=== PATIENT | male | born 1940 | race Caucasian/White ===

== ENCOUNTER 2018-06-26 11:38 | Inpatient (IN) ==
[2018-06-26 12:56] LABS: BASO# 0.08 X1000 (0.0-0.2); BASO% 0.8 % (0.0-0.8); EOS# 0.32 X1000 (0.0-0.7); EOS% 3.1 % (0.0-10.0); HEMATOCRIT 42.6 % (42.0-52.0); HEMOGLOBIN 14.2 g/dL (14.0-18.0); IMM GRAN# 0.02 X1000 (0.0-0.04); IMM GRAN% 0.2 % (0.0-0.5); LYMPH# 1.43 X1000 (1.2-3.4); MCH 27.3 PG (27-31); MCHC 33.3 g/dL (33-37); MCV 81.8 FL (81-99); MONO# 0.73 X1000 (0.11-0.59); MONO% 7.1 % (1.7-9.3); MPV 10.9 FL (7.4-10.4); NEUT# 7.63 X1000 (1.4-6.5); NEUT% 74.8 % (42.2-75.2); PLT 247 X1000 (130-400); RBC 5.21 XMIL (4.7-6.1); RDW 14.4 % (11.5-14.5); WBC 10.21 X1000 (4.8-10.8)
[2018-06-26 13:09] LABS: AGAP 12; BUN 13 mg/dL (8-22); CHLORIDE 104 mmol/L (98-107); COSMO 291; CREATININE 0.8 mg/dL (0.7-1.2); GLUCOSE 178 mg/dL (70-104); SODIUM 144 mmol/L (136-145); TCO2 29 mmol/L (25-35)
[2018-06-26 13:10] LABS: CALCIUM 8.9 mg/dL (8.8-10.2); ESTIMATED GFR > 60
[2018-06-26 13:18] LABS: BILIRUBIN URINE NEGATIVE (NEGATIVE); BLOOD URINE NEGATIVE (NEGATIVE); CLARITY CLEAR (CLEAR); COLOR YELLOW; KETONE URINE NEGATIVE (NEGATIVE); LEUKOCYTES URINE TRACE (NEGATIVE); NITRITE URINE NEGATIVE (NEGATIVE); PROTEIN URINE 2+(100 mg/dL) mg/dL (NEGATIVE); SP GRAVITY URINE 1.015; UROBILINOGEN URINE NORMAL
[2018-06-26 13:25] LABS: URINE EPITHELIAL CELLS <10 /HPF (<10); URINE SOURCE CLEAN CATCH
[2018-06-26] MEDS ORDERED: KLOR-CON PO ONE (14:06)
--- NOTE | 2018-06-26 14:07 | PROVIDER DOCUMENTATION ---
This chart was entered by Tonie Santoro Scribe, acting as scribe for Lee Narayan MD. HPI-Syncope/Dizziness - General Chief Complaint: Weakness Stated Complaint: weakness/fall Time Seen by Provider: 06/26/18 11:54 Source: patient, family () Allergies/Adverse Reactions: Patient Allergies Allergy/AdvReac Type Severity Reaction Status Date / Time No Known Allergies Allergy Verified 06/26/18 12:06 Home Medications: Home Medication List Medication Instructions Recorded Confirmed Last Taken Type Glimepiride 4 mg PO BID 06/10/18 06/26/18 Unknown History Metformin E.r. [Glucophage Xr] 1,000 mg PO BID 06/10/18 06/26/18 Unknown History Potassium Chloride 10 meq PO DAILY 06/10/18 06/26/18 Unknown History Tamsulosin [Flomax] 0.4 mg PO DAILY 06/10/18 06/26/18 Unknown History Losartan/Hydrochlorothiazide 1 ea PO DAILY 06/26/18 06/26/18 Unknown History [Losartan-Hctz 100-25 mg Tab] - History of Present Illness-Syncope/Dizzy Nature of Presenting Problem: 77yom presents to ED by EMS cc near syncope [employer] that was witnessed by his . Pt states he has felt generalized weakness for a few days but worse today and he felt dazed and weak and then just collapsed in his living room. Pt reports he has had left knee surgery and doesn't feel he has fully recovered and he is having back surgery soon. EKG from EMS shows Bigeminy. Pt has hx of DM, HTN and prostate issues. If witnessed syncope, by whom?: Prior Episodes: reports: no prior history Onset/Duration: reports: just prior to arrival Position/Activity at time of episode: reports: standing Symptoms prior to episode: reports: other (felt weak all over and dazed) Context: reports: collapsed. denies: lost consciousness Loss of Consciousness: dazed Recently Seen Here or By Another Healthcare Provider: No Review of Systems - Adult - REVIEW OF SYSTEMS - ADULT Constitutional: reports: see HPItari. denies: chills, fever Eyes: reports: no symptoms reported Ears, Nose, Mouth & Throat: reports: no symptoms reported Cardiovascular: reports: see HPI. denies: chest pain, edema Respiratory: reports: no symptoms reported Gastrointestinal: reports: no symptoms reported Genitourinary: reports: no symptoms reported Musculoskeletal: reports: no symptoms reported Integumentary: reports: no symptoms reported Neurological: reports: see HPI, loss of balance, syncope. denies: seizure Psychiatric: reports: no symptoms reported Endocrine: reports: no symptoms reported Hematologic/Lymphatic: reports: no symptoms reported Allergic/Immunologic: reports: no symptoms reported All Other Systems: Reviewed and Negative Past History - Adult - PAST MEDICAL HISTORY-ADULT Review of Records: reports: Nursing Assessment Review, Medications Reviewed, Social history reviewed & non-contributory. Major Childhood Illnesses: reports: denies history Cardiovascular: reports: HTN Respiratory: reports: denies history Gastrointestinal: reports: denies history Obstetrical/Gynecological: reports: denies history Genitourinary: reports: denies history Musculoskeletal: reports: denies history Neurological: reports: denies history Endocrine/Immune: reports: Diabetes Other Conditions: reports: denies history - PRIOR SURGERIES/PROCEDURES Surgical/Procedure History: reports: joint replacement - IMMUNIZATION STATUS Childhood Immunizations: See Nurse Assessment Flu Vaccine: See Nurse Assessment - FAMILY HISTORY Family History: reviewed, not pertinent - SOCIAL HISTORY Smoking: denies Physical Exam-General - PHYSICAL EXAM-ADULT Initial Vital Signs Reviewed: Yes - CONSTITUTIONAL General Appearance: negative: anxious, combative - EYES Eyes: PERRL/EOMI, pink conjunctivae. negative: photophobia - HEAD, EARS, NOSE, MOUTH & THROAT HENMT: moist mucous membranes, normal ENT inspection. negative: angioedema - NECK Neck: non-tender, full range of motion, supple, normal inspection. negative: Brudzinski's sign, carotid bruit - RESPIRATORY Respiratory: chest non-tender, lungs clear, normal breath sounds, no pleuratic chest pain, no respiratory distress, no accessory muscle use. negative: crackles, rales, rhonchi - CARDIOVASCULAR Cardiovascular: normal peripheral pulses, regular rate, rhythm, no edema, no gallop, no JVD, no murmur. negative: bradycardia, tachycardia - GASTROINTESTINAL (ABDOMEN) Abdominal Exam: normal bowel sounds, non tender, soft, no organomegaly. negative: rigid, rebound, tenderness - LYMPHATIC Lymphatic: no adenopathy. negative: striations - MUSCULOSKELETAL Back Exam: normal inspection. negative: swelling Extremity: normal range of motion, normal inspection. negative: deformity - SKIN Integumentary: warm/dry, abrasion(s) (left elbow and top of right hand). negative: diaphoresis, jaundice Progress - PLAN OF CARE/RESULTS Progress/Plan/Lab Results: Vital Signs - 8 hr 06/26/18 11:55 Temperature 97.5 F L Pulse Rate 75 Respiratory Rate 16 Blood Pressure 157/85 O2 Sat by Pulse Oximetry 99 Laboratory Results - last 24 hr 06/26/18 06/26/18 06/26/18 12:19 12:20 12:20 WBC RBC Hgb Hct MCV MCH MCHC RDW Std Deviation Plt Count MPV Immature Gran % (Auto) Neut % (Auto) Lymph % (Auto) [place] % (Auto) Eos % (Auto) Baso % (Auto) Immature Gran # (Auto) Neut # (Auto) Lymph # (Auto) [place] # (Auto) Eos # (Auto) Baso # (Auto) Sodium Potassium Chloride Carbon Dioxide Anion Gap BUN Creatinine Estimated GFR/1.73 m2 BUN/Creatinine Ratio Glucose POC Glucose 168 H Calculated Osmolality Calcium Magnesium 1.8 Troponin T < 0.010 Free T4 Urine Source Urine Color Urine Clarity Urine pH Ur Specific [place] Urine Protein Urine Ketones Urine Blood Urine Nitrite Urine Bilirubin Urine Urobilinogen Urine Microscopic RBC Urine WBC Ur Epithelial Cells Urine Glucose 06/26/18 06/26/18 06/26/18 12:20 12:20 12:20 WBC 10.21 RBC 5.21 Hgb 14.2 Hct 42.6 MCV 81.8 MCH 27.3 MCHC 33.3 RDW Std Deviation 14.4 Plt Count 247 MPV 10.9 H Immature Gran % (Auto) 0.2 Neut % (Auto) 74.8 Lymph % (Auto) 14.0 L [place] % (Auto) 7.1 Eos % (Auto) 3.1 Baso % (Auto) 0.8 Immature Gran # (Auto) 0.02 Neut # (Auto) 7.63 H Lymph # (Auto) 1.43 [place] # (Auto) 0.73 H Eos # (Auto) 0.32 Baso # (Auto) 0.08 Sodium 144 Potassium 3.0 L Chloride 104 Carbon Dioxide 29 Anion Gap 12 BUN 13 Creatinine 0.8 Estimated GFR/1.73 m2 > 60 BUN/Creatinine Ratio 16 Glucose 178 H POC Glucose Calculated Osmolality 291 Calcium 8.9 Magnesium Troponin T Free T4 1.08 Urine Source Urine Color Urine Clarity Urine pH Ur Specific [place] Urine Protein Urine Ketones Urine Blood Urine Nitrite Urine Bilirubin Urine Urobilinogen Urine Microscopic RBC Urine WBC Ur Epithelial Cells Urine Glucose 06/26/18 12:55 WBC RBC Hgb Hct MCV MCH MCHC RDW Std Deviation Plt Count MPV Immature Gran % (Auto) Neut % (Auto) Lymph % (Auto) [place] % (Auto) Eos % (Auto) Baso % (Auto) Immature Gran # (Auto) Neut # (Auto) Lymph # (Auto) [place] # (Auto) Eos # (Auto) Baso # (Auto) Sodium Potassium Chloride Carbon Dioxide Anion Gap BUN Creatinine Estimated GFR/1.73 m2 BUN/Creatinine Ratio Glucose POC Glucose Calculated Osmolality Calcium Magnesium Troponin T Free T4 Urine Source CLEAN CATCH Urine Color YELLOW Urine Clarity CLEAR Urine pH 6.0 Ur Specific [place] 1.015 Urine Protein 2+(100 mg/dL) A Urine Ketones NEGATIVE Urine Blood NEGATIVE Urine Nitrite NEGATIVE Urine Bilirubin NEGATIVE Urine Urobilinogen NORMAL Urine Microscopic RBC Not Reportable Urine WBC TRACE A Ur Epithelial Cells <10 Urine Glucose 3+(500 mg/dL) A Orders Category Date Time Status Cardiac Monitoring DIRECTED Care 06/26/18 12:01 Active Saline Loc NOW Care 06/26/18 12:01 Active CHEST-PORTABLE [RAD] Stat Exams 06/26/18 13:21 Taken ACETONE SERUM [CHEM] Stat Lab 06/26/18 12:20 Received BASIC METABOLIC PANEL [CHEM] Stat Lab 06/26/18 12:20 Completed BLOOD CULTURE [BLDCUL] Stat Lab 06/26/18 12:02 Ordered CBC WITH ELECTRONIC DIFF [HEME] Stat Lab 06/26/18 12:20 Completed FREE T4 Stat Lab 06/26/18 12:20 Completed MAGNESIUM [CHEM] Stat Lab 06/26/18 12:20 Completed TROPONIN T Stat Lab 06/26/18 12:[address] W/POSS RFLX CULT [URINALYSIS] Stat Lab 06/26/18 12:55 Completed EKG [EKG] Stat Ther 06/26/18 12:02 Ordered Result Diagrams: 06/26/18 12:20 06/26/18 12:20 - EKG 1 Time of EKG reading by physician:: 12:02 EKG Read and Signed by:: Lee Narayan EKG Interpretation (*Must complete 3 of following elements*): Abnormal Rate: 77 Rhythm: sinus rhythm with frequent PVC and PAC QRS: LVH (minimal voltage criteria, may be normal variant), PVC's ST Wave: non-specific ST changes - CONSULTS/PCP/HOSPITALIST Notification #1 *Consult/PCP/Hospitalist*: DR LUNA Time Discussed: 13:56 Consult Disposition: Admit Departure - Departure Date of Disposition Decision: 06/26/18 Time of Disposition Decision: 14:04 DIAGNOSIS: Syncope and collapse, Abrasion of left elbow, initial encounter, Abrasion of right hand, initial encounter, Hypokalemia Disposition: ADMITTED INPATIENT 09 Certified Medical Emergency: Emergent Condition: Stable - Critical Care Note This patient required my direct & personal management of CC.: No Attestation - Physician/ COLLETTE Attestation Patient care was provided by Advanced Practice Provider:: No The physician spent face to face time with patient:: Yes Advanced Practice Provider documentation review:: Supervising physician onsite and consulted in the evaluation and care of this patient. The physician did have a face to face encounter with the patient. This chart was documented by the indicated scribe, (Tonie Santoro Scribe) and accurately reflects the services I performed and decisions made by me, Lee Narayan MD, as attested by the provider's signature.
--- NOTE | 2018-06-26 14:09 | EKG Report ---
Test Performed on : 06/26/2018 12:02:30 PM Test Reason : SYNCOPE Blood Pressure : / mmHG Vent. Rate : 077 BPM Atrial Rate : 077 BPM P-R Int : 140 ms QRS Dur : 098 ms QT Int : 372 ms P-R-T Axes : 038 -20 164 degrees QTc Int : 420 ms Sinus rhythm. with frequent premature ventricular complexes. and premature atrial complexes. Minimal voltage criteria for LVH, may be normal variant Nonspecific ST and T wave abnormality Abnormal ECG No previous ECGs available Unconfirmed Result
[2018-06-26] MEDS ORDERED: ZOFRAN IV PRN ×2 (14:35→16:43)
[2018-06-26] MEDS ORDERED: TYLENOL PO PRN ×2 (14:35→16:43)
--- NOTE | 2018-06-26 15:36 | Diag Imaging Result Doc PS360 ---
EXAM: CHEST-PORTABLE 06/26/2018 HISTORY: SYNCOPE TECHNIQUE: AP portable upright at 1357 COMMENT: There is subsegmental atelectasis in the lingula and left lower lobe which may be superimposed on fibrosis. Some of this was present on 06/10/2018. IMPRESSION: Left lower lobe and lingular atelectasis plus minus fibrosis. Electronically signed by Ted Garcia 06/26/2018 3:34 PM
--- NOTE | 2018-06-26 15:37 | Diag Imaging Result Doc PS360 ---
EXAM: ABDOMEN FLAT/UPRIGHT 06/26/2018 HISTORY: abd disctention, constipation, nausea TECHNIQUE: Flat and upright abdomen COMMENT: There is some colonic gas. There are metallic fragments over the upper left thigh. There is no evidence of organomegaly or mass and the stomach and small bowel are not distended. IMPRESSION: Nonspecific abdomen. Electronically signed by Ted Garcia 06/26/2018 3:35 PM
[2018-06-26] MEDS ORDERED: HUMALOG (PARKWAY) SUBQ SCH (16:00)
--- NOTE | 2018-06-26 18:49 | Diag Imaging Result Doc PS360 ---
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 The pedicles are intact. There has been no appreciable change since the lateral chest radiograph of 06/10/2018.There is no evidence of acute fracture or subluxation. IMPRESSION: No evidence of acute disease. Electronically signed by Ted Garcia 06/26/2018 6:46 PM
[2018-06-26] MEDS: AMARYL PO SCH (18:50)
[2018-06-26] MEDS: GLUCOPHAGE XR PO SCH (18:50)
[2018-06-26] MEDS: HUMALOG SUBQ SCH (21:39)
--- NOTE | 2018-06-27 02:25 | HISTORY AND PHYSICAL ---
CHIEF COMPLAINT: Fall. HISTORY OF PRESENT ILLNESS: This is a 77-year-old gentleman with a history of diabetes mellitus, hypertension, and spinal stenosis. He presented to the emergency room after falling. The patient stated that he woke up and got up to go to the restroom. While walking he felt his heart start pounding out of his chest. He said the rate increased. He began to feel weak all over. He got nauseated and then stated his legs would not hold him up. He fell backwards. He denied any specific injury. He did state that he felt like his body was just laying there. He could not move it for a few seconds. Mr. Martell has L5 spinal stenosis. He was supposed to have had surgery on this and it was discovered that he had a bad knee, so the surgeon felt that his knee needed to be repaired first which he and he think that he is recovering well from this as far as his knee goes. He did state that over the last 2 to 3 weeks that he has had increasing weakness and some decreased sensation to both legs as well as some increasing palpitations. He has developed constipation. EKG revealed sinus rhythm with frequent PVCs as well as PACs. He did have 2 episodes of bigeminy witnessed by the emergency room physician and emergency room staff. He did state that during this time he felt weak all over. PAST MEDICAL HISTORY: 1. Diabetes mellitus. 2. Hypertension. 3. Spinal stenosis, L5. PAST SURGICAL HISTORY: Bilateral broken hips, left elbow and knee surgery. SOCIAL HISTORY: He denies alcohol, tobacco, or illicit drug use. He lives with his . ALLERGIES: No known drug allergies. He does have a latex allergy. HOME MEDICATIONS: A list will be obtained by the nursing staff and once verified we will review and restart as appropriate. REVIEW OF SYSTEMS: Discussed with the patient with pertinent positives stated in the HPI. He denied any chest pain, productive cough, fever, chills, night sweats, any recent weight loss or weight gain, any nausea, vomiting, any black or bloody vomitus or stools, hematuria, dysuria, frequency, urgency. PHYSICAL EXAMINATION: GENERAL: This is a 77-year-old gentleman who is lying on the stretcher in the emergency room in no distress. VITAL SIGNS: Blood pressure is 150/85 with a heart rate of 75, respirations 16, temperature 97.5 degrees oral with room air saturations 99%. EYES: Pupils equal, round, react to light. EOMs are intact. Sclerae are anicteric. HEENT: Head is normocephalic, atraumatic. Mucous membranes are moist. NECK: Supple with trachea midline. CARDIOVASCULAR: Regular rate and rhythm. S1 and S2 appreciated. No murmurs. He does have bilateral pretibial edema. Bilateral calves are nontender to palpation. PULMONARY: Breath sounds are clear with no increased work of breathing noted. Chest rises and falls symmetric with respiration. Chest wall is nontender to palpation. GASTROINTESTINAL: Abdomen is distended, soft, nontender with bowel sounds in all 4 quadrants. GENITOURINARY: He has no CVA or suprapubic tenderness. LABS: WBC is 10.2 with hemoglobin 14.2, hematocrit 42.6, and platelets 247,000. Sodium 144, potassium 3, BUN 13, creatinine 0.8 with glucose of 178. Urinalysis is essentially negative. Acetone is negative. ASSESSMENT AND PLAN: 1. Syncope and collapse. The patient will be admitted to ICU. He will be placed on telemetry. 2. Palpitations. 3. History of spinal stenosis, S5, with decreased sensation lower extremities. 4. Diabetes mellitus type 2. 5. Hypertension. 6. Hypokalemia. We will replete potassium and trend labs. PLAN: The patient will be admitted to ICU at [facility] for close monitoring. He will be placed on telemetry. We will obtain an echocardiogram. We will to continue to trend troponins and cardiac enzymes. We will identify his home medications and once verified continue as appropriate. He will be placed on pattern blood glucose with sliding scale insulin. We will obtain a flat and upright. Repeat a CBC, CMP and a TSH in the morning. We will obtain neurovascular checks to his lower extremities q.8 hours. Further treatments pending hospital course. Dictated by PANFILO Oreilyl for Nathan Carranza MD cc: PANFILO Oreilly MD
[2018-06-27] MEDS: HUMALOG SUBQ SCH ×4 (06:13→21:49)
[2018-06-27 06:55] LABS: BASO# 0.04 X1000 (0.0-0.2); BASO% 0.4 % (0.0-0.8); EOS# 0.31 X1000 (0.0-0.7); EOS% 3.4 % (0.0-10.0); HEMATOCRIT 41.2 % (42.0-52.0); HEMOGLOBIN 13.6 g/dL (14.0-18.0); IMM GRAN# 0.04 X1000 (0.0-0.04); IMM GRAN% 0.4 % (0.0-0.5); LYMPH# 2.43 X1000 (1.2-3.4); LYMPH% 26.6 % (20.5-51.1); MCH 27.3 PG (27-31); MCV 82.7 FL (81-99); MONO# 0.52 X1000 (0.11-0.59); MONO% 5.7 % (1.7-9.3); NEUT# 5.81 X1000 (1.4-6.5); NEUT% 63.5 % (42.2-75.2); PLT 234 X1000 (130-400); RBC 4.98 XMIL (4.7-6.1); RDW 14.7 % (11.5-14.5); WBC 9.15 X1000 (4.8-10.8)
[2018-06-27 07:14] LABS: AGAP 10; ALBUMIN 2.9 g/dL (3.5-5.0); ALKALINE PHOSPHATASE 97 U/L (32-122); BUN 13 mg/dL (8-22); CALCIUM 9.1 mg/dL (8.8-10.2); CHLORIDE 104 mmol/L (98-107); COSMO 291; CREATININE 0.9 mg/dL (0.7-1.2); ESTIMATED GFR > 60; GLUCOSE 196 mg/dL (70-104); GOT 10 U/L (10-34); GPT 12 U/L (10-44); POTASSIUM 3.3 mmol/L (3.5-5.1); SODIUM 143 mmol/L (136-145); TCO2 29 mmol/L (25-35); TOTAL BILIRUBIN 0.36 mg/dL (0.20-1.00); TOTAL PROTEIN 5.8 g/dL (6.3-8.3)
[2018-06-27 07:16] LABS: HEMOGLOBIN A1C 9.5 % (4.8-6.0)
[2018-06-27] MEDS: KLOR-CON PO SCH (08:18)
[2018-06-27] MEDS: GLUCOPHAGE XR PO SCH (08:18)
[2018-06-27] MEDS: AMARYL PO SCH (08:19)
[2018-06-27] MEDS ORDERED: HYZAAR 50/12.5 MG PO SCH (09:00)
[2018-06-27] MEDS ORDERED: FLOMAX PO SCH (09:00)
[2018-06-27] MEDS ORDERED: LANTUS INSULIN SUBQ ONE (12:16)
--- NOTE | 2018-06-27 13:16 | ECHO REPORT ---
ORDER DATE: 06/26/2018 INDICATION: Syncope, palpitations. FINDINGS: 1. The right atrium is mildly enlarged at 4.4 cm. 2. Mild tricuspid regurgitation. RV systolic pressure of 35. 3. Normal RV size and systolic function. 4. Trace pulmonic insufficiency. 5. Mild to moderate left atrial enlargement with a dimension of 4.2 cm but a volume index of 37. 6. No mitral valve prolapse. Mild mitral regurgitation. No evidence of mitral stenosis. 7. Normal LV size, end-diastolic dimension of 5.5. Normal wall thicknesses with a posterior and interventricular septal wall thickness of 1.1 cm each. Normal LV systolic function. Estimated EF is 60-65% with normal wall motion. 8. Aortic valve opens well. It is trileaflet. No evidence of stenosis or insufficiency. 9. Aorta appears normal in visualized segments. 10. No pericardial effusion seen. cc: MD Liliana Zapata CRNP
[2018-06-27] MEDS: NS 1,000 ML IV SCH (13:50)
--- NOTE | 2018-06-27 14:31 | PROGRESS NOTE ---
DATE: 06/27/2018 SUBJECTIVE: This morning Mr. Martell refers to be doing fairly okay. No new complaints. He said he has not had any more of the dizzy spells since he has been here. He, however, had a concern that this is been an ongoing issue for some time. He describes 2 separate type of symptoms. One, he describes dizziness especially walking around, standing up, and moving around. He feels the head starts to feel woozy, and his vision gets tunneled. Then he just goes down. This is what brought him in last night. He also complains of another incident when he lies down and whenever he moves his head he occasionally will feel the roof is spinning around. That has been going on for about a year. It has been sporadically happening, but that is not what brought him to the hospital. The and the sister were at the bedside at the time of the encounter. OBJECTIVE: Vital Signs: Currently, blood pressure is 150/73. Pulse is 70. Respirations are 20. Temperature is 97.5 degrees. Patient was saturating 97% on room air. General: Mr. Martell is a 77-year-old male. He is in bed. He is not in any distress. HEENT: Mucosa is pink and slightly dry. Anicteric. Acyanotic. Neck: Supple. No JVD. No carotid bruit. Trachea is midline. No thyromegaly. Chest: Good air entry bilaterally. There are no crepitations. No rhonchi. Cardiovascular: Regular rate and rhythm. There are no murmurs, no rubs, no gallops. Gastrointestinal: Abdomen is soft. Extremities: No pedal edema. STABLE ATTENDANT: Patient is awake, alert, oriented to person and to place, not to time. Patient is able to move all extremities. During the examination when I asked the patient to sit up and listen to his lungs posteriorly, after a couple minutes he said he felt dizzy just sitting up. CURRENT LABORATORY DATA: WBC is 9.15, hemoglobin is 13.6, platelet count of 234,000. Chemistry is also reviewed. It is all completely normal except for potassium of 3.3. A1c is 9.5. CURRENT IMAGING STUDIES: A chest x-ray which was done showed left lower lobe and lingular atelectasis plus fibrosis. A KUB showed nonspecific abdomen. The thoracolumbar spine showed no evidence of acute disease. EKG on admission did show sinus rhythm with multiple PVCs and PACs. DIAGNOSES: 1. Recurrent episode of syncope, which sounds like orthostatic hypotension. We will check his orthostatic vitals, and we will avoid any potential medication that can cause this including his current blood pressure medications as well as tamsulosin. We will hydrate the patient and re-evaluate his vitals in the morning. The patient has had an echocardiogram done as well. EKG did show some PVCs and PACs. It is also possible cardiac course could be contributing to this, so Cardiology will be consulted. 2. Episodic vertigo. This is a concerning symptom for the patient. However, that was not the main reason why he came to the emergency room and got admitted. The patient did not have any nystagmus at the time of the current evaluation. We will do an MRI tomorrow morning to rule out any posterior foci pathology. If the MRI is negative, I would advise the patient to follow up with an ENT to rule out any other inner ear issues. 3. Diabetes mellitus type 2 which is uncontrolled with an A1c of 9.5. The patient is currently on oral hypoglycemic agent. I have discontinued this during the hospital course. We will use insulin for now, and even with this A1c I think he is going to benefit from a short course of insulin therapy at home. 4. Clinical volume depletion. The patient will be started on gentle hydration. 5. History of spinal stenosis, noted. 6. Hypertension, controlled. cc: Lion Sung MD
--- NOTE | 2018-06-27 14:32 | CARDIOLOGY CONSULTATION ---
DATE: 06/27/2018 CHIEF COMPLAINT ON PRESENTATION: Dizziness and fall. HISTORY OF PRESENT ILLNESS: Mr. Martell is a 77-year-old white male with a history of diabetes and hypertension. He presented for evaluation yesterday after he got out of the bed to go to the restroom. He felt very lightheaded during the course of walking across the room and eventually fell. He did not experience overt syncope. He denies any pain sensations. It took him around 30 minutes before he was able to get up. He reports his normal oral intake occurring the night before, and other than just a mild cough over the last few weeks, has felt well. He has had no recent changes in his medications. He had not eaten or had anything to drink that morning as of yet, and he had not taken his medications. This was his usual pattern. PAST MEDICAL HISTORY: 1. Diabetes. 2. Hypertension. 3. Spinal stenosis. SOCIAL HISTORY: No tobacco, alcohol or illicit drug use. He is . FAMILY HISTORY: Significant for hypertension. REVIEW OF SYSTEMS: Ten system review of systems was negative except for those things mentioned in the HPI. PHYSICAL EXAMINATION: He is afebrile. His heart rate is 70, and over the course of the hospitalization has been in the 70s to 80s predominantly. His blood pressure most recently is 143/67. General: He is in no acute distress. HEENT: Oropharynx moist. Poor dentition. Eyes: Hauser conjunctivae. White sclerae. Neck: No obvious thyromegaly or thyroid tenderness. Cardiovascular: He sounds to be in a regular rate and rhythm. He has no murmurs. No S3. He has no lower extremity edema. Chest: Clear bilaterally. No increased work of breathing. Abdomen: Soft, nontender and nondistended. He has no obvious organomegaly. Skin: Warm and dry throughout without any rashes. Neurologic: He is moving all extremities well. He has no lateralizing deficits. DIAGNOSTIC DATA: His chest x-ray demonstrated left lower lobe and lingular atelectasis plus or minus fibrosis. He had an echocardiogram showing a normal ejection fraction. His aortic valve opened well. There was no evidence of stenosis. He had mild to moderate left atrial enlargement, mild right atrial enlargement. No real significant valvular abnormalities on that study. He had an abdomen x-ray showing nonspecific findings, and T and L spine show no evidence of any acute disease. His EKG showed sinus rhythm, PACs and PVCs were identified. No real ischemic changes. He had a normal CA interval. His white count is 9.1, hematocrit 41, platelet count is 234. Sodium is 143, potassium 3.3, BUN is 13, creatinine 0.9, albumin is 2.9. His cardiac enzymes are negative. His TSH was 7.23 with a free T4 of 1.08. ASSESSMENT: Mr. Martell is a 77-year-old gentleman who presented with lightheadedness and a fall. PLAN: I believe this is most likely an orthostatic type episode. He did not have any preceding symptoms of palpitations or chest pain. His echocardiogram is largely unremarkable for any etiology. I will make arrangements for him to have an outpatient cardiac event detector. But otherwise, from my standpoint, he is okay for discharge. cc: Flako Potts MD
[2018-06-28] MEDS: NS 1,000 ML IV SCH (04:56)
[2018-06-28] MEDS: HUMALOG SUBQ SCH ×2 (06:19→11:24)
--- NOTE | 2018-06-28 07:20 | EKG Report ---
Test Performed on : 06/27/2018 11:20:09 AM Test Reason : syncope Blood Pressure : / mmHG Vent. Rate : 076 BPM Atrial Rate : 076 BPM P-R Int : 140 ms QRS Dur : 094 ms QT Int : 410 ms P-R-T Axes : 058 -15 -11 degrees QTc Int : 461 ms Sinus rhythm. with frequent premature ventricular complexes. Nonspecific ST and T wave abnormality Prolonged QT Abnormal ECG When compared with ECG of 26-JUN-2018 12:02, (Unconfirmed) premature atrial complexes. are no longer present Confirmed by [place] SHOOK, Shahram Mckeon ([id number]) on 06/28/2018 9:28:20 AM
[2018-06-28] MEDS ORDERED: INSULIN PEN NEEDLES ONE (08:37)
[2018-06-28] MEDS: KLOR-CON PO SCH (08:41)
[2018-06-28] MEDS ORDERED: LANTUS INSULIN SUBQ SCH (09:00)
[2018-06-28] MEDS ORDERED: PRINIVIL PO SCH (09:00)
[2018-06-28 11:58] VITALS: BP 119/51
--- NOTE | 2018-06-28 13:06 | Diag Imaging Result Doc PS360 ---
EXAM: MRI BRAIN W/O CONTRAST HISTORY: vertigo. R/o posterior circulation/fossa pathology TECHNIQUE: MRI brain without contrast. Axial, sagittal, and coronal images obtained in multiple sequences. COMPARISON: CT head from 08/26/2017 FINDINGS: No recent infarct. There are mild to moderate microvascular ischemic changes. Mild atrophy. No mass or midline shift. No epidural or subdural fluid collection. Normal orbits. Moderate right maxillary mucosal thickening. No sinus opacification. IMPRESSION: Atrophy with chronic microvascular ischemic changes. Electronically signed by Mustapha Bowers 06/28/2018 1:03 PM
--- NOTE | 2018-06-29 12:27 | DISCHARGE SUMMARY ---
ADMISSION DATE: 06/26/2018 DISCHARGE DATE: 06/28/2018 DISPOSITION: Home. FOLLOWUP: 1. Dr. Day. 2. Dr. Flako Potts. CONSULTATION DURING THIS ADMISSION: Cardiology was consulted. Patient was seen by Dr. Potts. INVASIVE PROCEDURES DONE DURING THIS ADMISSION: None. IMAGING STUDIES OF SIGNIFICANCE: 1. A chest x-ray did show left lower lobe lingular atelectasis +/- fibrosis. Echocardiogram showed an ejection fraction of 60 to 65 percent with normal wall motion. 2. A KUB showed nonspecific abdomen. 3. The thoracolumbar spine showed no evidence of acute disease. 4. An MRI of the brain showed atrophy with chronic microvascular ischemic changes. ADMISSION DIAGNOSES: 1. Syncope and collapse. 2. Palpitation. 3. History of spinal stenosis. 4. Diabetes mellitus. DIAGNOSES AT THE TIME OF DISCHARGE: 1. Recurrent syncopal episode secondary to orthostatic hypotension versus neurally mediated syncope. 2. Episodic vertigo with normal MRI. The patient is advised to follow up with ENT. 3. Diabetes mellitus type 2 with a presenting A1c of 9.5. The patient has been started on insulin regimen. 4. Clinical volume depletion, improved. 5. History of spinal stenosis, currently asymptomatic. 6. Hypertension, controlled. DISCHARGE MEDICATIONS: 1. Metformin 1000 b.i.d. 2. Lisinopril 10 mg p.o. daily. 3. Insulin glargine 15 units subcutaneous. 4. Avodart 0.5 mg daily. Medication that has been discontinued: 1. Glimepiride. 2. Tamsulosin. 3. Losartan with hydrochlorothiazide has been discontinued. PRESENTING COMPLAINT: Falls. HISTORY OF PRESENTING COMPLAINT: Mr. Martell is a 77-year-old male who is known to have diabetes, hypertension, and spinal stenosis at L5, presented to [facility] initially because of multiple falls. Mr Martell described the episode as something that happens usually on standing position. Whenever he gets from a sitting position to a standing position, he gets very dizzy and he gets tunnel vision and blackout for a few seconds but then immediately gets back to his senses. He said it got so worse that he needed to come and check it out. Upon presenting to [facility], patient was transferred over here for a higher level of care. HOSPITAL COURSE: Mr. Martell was admitted to the medical floor. He was evaluated extensively for what appeared to be syncope. His orthostatic vitals were unremarkable at the time cardiology. Was consulted. Patient was seen by Dr. Potts. Multiple investigations were done which were unremarkable. Mr. Martell was found to be clinically volume depleted, so his hydrochlorothiazide was discontinued. He was adequately hydrated. His tamsulosin was also discontinued and was started on Avodart. During the hospital course, he seems to have significantly improved. He did not have any more of the syncopal episode. He, however, did also mention about episodes of vertigo. An MRI was done to rule out any posterior fossa pathology, which was negative. Mr. Martell is advised to follow up with an ENT to rule out any inner ear pathology. He is also supposed to follow up with Dr. Flako Potts for heart monitor. All the discharge instructions were discussed with him. The was at the bedside at the time of the encounter. VITAL SIGNS: Today blood pressure is 119/51, his pulse is 75, respiration is 15, temperature 98 degrees. Patient was saturating 96% on room air. His current physical exam is unremarkable. He has been tolerating his diet and he also has normal bowel movement during the hospital course. We think Mr. Martell is clinically stable for discharge. TIME SPENT: For discharge is 37 minutes. cc: MD Flako Dill MD Raphael K. Quansah, MD
== END 2018-06-28 15:25 | disposition home or self-care (01) | DRG 312 ==
LOC: P.ED 11:38 → SUATTDRO 15:36 → P.ICU 15:36 → ICU 16:42 → 3N 06-27 01:42
PROVIDERS: ATTEND Internal Medicine
CPT/HCPCS: 70551; 71010; 71045; 72080; 74019; 74020; 80048; 80053; 81001; 82009; 82948; 83036; 83735; 84439; 84443; 84484; 85025; 87040; 93005; 93010; 93306; 99285; A9270; J1815; J7030; XXXXX

== ENCOUNTER 2018-08-11 11:09 | Inpatient (IN) ==
[2018-08-11] MEDS ORDERED: LASIX IV ONE ×2 (12:00→13:22)
--- NOTE | 2018-08-11 12:47 | Diag Imaging Result Doc PS360 ---
CHEST-PORTABLE - 08/11/2018 INDICATION: sob COMPARISON: 07/28/2018 FINDINGS: Lung volumes are lower. There is increasing ill-defined infiltrate or atelectasis in the left lower lobe with poor visualization of the left hemidiaphragm. No pneumothorax or large pleural effusion. Heart size is top normal. IMPRESSION: Lower lung volumes. Increasing infiltrate or atelectasis in the left lower lobe. Electronically signed by Cristobal Adorno 08/11/2018 12:45 PM
[2018-08-11 12:55] LABS: BASO% 0.7 % (0.0-0.8); EOS# 0.22 X1000 (0.0-0.7); EOS% 3.1 % (0.0-10.0); HEMATOCRIT 39.7 % (42.0-52.0); IMM GRAN% 0.1 % (0.0-0.5); LYMPH# 1.62 X1000 (1.2-3.4); LYMPH% 22.8 % (20.5-51.1); MCH 27.4 PG (27-31); MCHC 32.7 g/dL (33-37); MCV 83.6 FL (81-99); MONO# 0.62 X1000 (0.11-0.59); MONO% 8.7 % (1.7-9.3); MPV 10.8 FL (7.4-10.4); NEUT# 4.57 X1000 (1.4-6.5); NEUT% 64.6 % (42.2-75.2); PLT 240 X1000 (130-400); RBC 4.75 XMIL (4.7-6.1); RDW 14.4 % (11.5-14.5); WBC 7.09 X1000 (4.8-10.8)
[2018-08-11 12:56] LABS: BASO# 0.05 X1000 (0.0-0.2); IMM GRAN# 0.01 X1000 (0.0-0.04)
[2018-08-11 13:09] LABS: PROTIME 13.6 Seconds (11.0-16.0)
[2018-08-11 13:10] LABS: INR 0.99
--- NOTE | 2018-08-11 13:17 | EKG Report ---
Test Performed on : 08/11/2018 12:19:52 PM Test Reason : sob Blood Pressure : / mmHG Vent. Rate : 080 BPM Atrial Rate : 080 BPM P-R Int : 140 ms QRS Dur : 094 ms QT Int : 402 ms P-R-T Axes : 053 -21 -61 degrees QTc Int : 463 ms Sinus rhythm. with frequent premature ventricular complexes. in a pattern of bigeminy. Minimal voltage criteria for LVH, may be normal variant ST & T wave abnormality, consider lateral ischemia Prolonged QT Abnormal ECG When compared with ECG of 27-JUN-2018 11:20, No significant change was found Unconfirmed Result
[2018-08-11 13:22] LABS: BILIRUBIN URINE NEGATIVE (NEGATIVE); BLOOD URINE NEGATIVE (NEGATIVE); CLARITY CLEAR (CLEAR); COLOR YELLOW; KETONE URINE TRACE mg/dL (NEGATIVE); LEUKOCYTES URINE NEGATIVE (NEGATIVE); NITRITE URINE NEGATIVE (NEGATIVE); UROBILINOGEN URINE NORMAL
[2018-08-11] MEDS ORDERED: VASOTEC IV ONE (13:22)
[2018-08-11 13:24] LABS: URINE BACTERIA 1+ /HFP; URINE CAST NONE SEEN /LPF; URINE CRYSTAL CA OXALATE PRESENT /HPF; URINE EPITHELIAL CELLS <10 /HPF (<10); URINE RBC <10 /HPF (<10); URINE SOURCE CLEAN CATCH; URINE WBC <10 /HPF (<10); URINE YEAST PRESENT /HPF
[2018-08-11 13:24] LABS: AGAP 8; ALBUMIN 3.2 g/dL (3.5-5.0); ALKALINE PHOSPHATASE 95 U/L (32-122); BUN 15 mg/dL (8-22); CALCIUM 8.6 mg/dL (8.8-10.2); CHLORIDE 105 mmol/L (98-107); CK PROFILE 62 U/L (24-204); COSMO 287; CREATININE 0.8 mg/dL (0.7-1.2); ESTIMATED GFR > 60; GLUCOSE 228 mg/dL (70-104); GOT 9 U/L (10-34); GPT 10 U/L (10-44); POTASSIUM 3.4 mmol/L (3.5-5.1); SODIUM 140 mmol/L (136-145); TCO2 27 mmol/L (25-35); TOTAL PROTEIN 5.8 g/dL (6.3-8.3)
[2018-08-11] MEDS ORDERED: NITROGLYCERIN TOP ONE (13:58)
[2018-08-11] MEDS ORDERED: TYLENOL PO PRN (13:59)
[2018-08-11] MEDS ORDERED: ZOFRAN IV PRN (13:59)
--- NOTE | 2018-08-11 13:59 | PROVIDER DOCUMENTATION ---
This chart was entered by Irma Alvarez Scribe, acting as scribe for Chadwick Oates MD. HPI-General Adult - General Chief Complaint: Edema Stated Complaint: SWELLING / ALL OVER Time Seen by Provider: 08/11/18 11:21 Source: patient Allergies/Adverse Reactions: Patient Allergies Allergy/AdvReac Type Severity Reaction Status Date / Time No Known Allergies Allergy Verified 08/11/18 13:01 Home Medications: Home Medication List Medication Instructions Recorded Confirmed Last Taken Type Metformin E.r. [Glucophage Xr] 1,000 mg PO BID 06/10/18 08/11/18 08/11/18 History Dutasteride [Avodart] 0.5 mg PO DAILY #30 cap 06/28/18 08/11/18 08/11/18 Rx Glimepiride 4 mg PO BID #1 tab 06/28/18 08/11/18 08/11/18 Rx LISINOpril [Prinivil] 10 mg PO DAILY #120 tab 06/28/18 08/11/18 08/10/18 Rx NPH, Human Insulin Isophane 55 unit SQ DAILY #1 ml 06/28/18 08/11/18 08/11/18 Rx [Novolin N] - History of Present Illness -Gen Adult Nature of Presenting Problems: Patient is a 77 year old male who presents with swelling to bilateral lower legs, bilateral hands and abdomen. Denies history of CHF. States having shortness of breath with exertion. Denies having pain. Location of Pain/Injury: reports: none Pain Radiation: reports: no radiation Quality of Pain: reports: none Severity: reports: mild Onset/Duration: reports: gradual Timing: reports: still present Context/Activities at Onset: reports: light activity Associated Symptoms: reports: other (swelling to bilateral hands, bilateral lower legs and abdomen.) Similar Symptoms Previously?: Yes Recently seen or treated by another doctor?: Yes Review of Systems - Adult - REVIEW OF SYSTEMS - ADULT Constitutional: reports: no symptoms reported. denies: chills, fever, fatique Eyes: reports: no symptoms reported Ears, Nose, Mouth & Throat: reports: no symptoms reported Cardiovascular: reports: orthopnea. denies: chest pain, heart murmur Respiratory: reports: dyspnea on exertion. denies: cough, wheezing Gastrointestinal: reports: no symptoms reported Genitourinary: reports: no symptoms reported Musculoskeletal: reports: no symptoms reported Integumentary: reports: see HPI, other (swelling to bilateral lower legs, bilateral hands, and abdomen.). denies: hives, itching, rash Neurological: reports: no symptoms reported Psychiatric: reports: no symptoms reported Endocrine: reports: no symptoms reported Hematologic/Lymphatic: reports: no symptoms reported Allergic/Immunologic: reports: no symptoms reported All Other Systems: Reviewed and Negative Past History - Adult - PAST MEDICAL HISTORY-ADULT Review of Records: reports: Old Records Reviewed, Nursing Assessment Review, Medications Reviewed, Social history reviewed & non-contributory. Major Childhood Illnesses: reports: denies history Cardiovascular: reports: HTN Respiratory: reports: denies history Gastrointestinal: reports: denies history Obstetrical/Gynecological: reports: denies history Genitourinary: reports: denies history Musculoskeletal: reports: denies history Neurological: reports: denies history Endocrine/Immune: reports: Diabetes Other Conditions: reports: denies history - PRIOR SURGERIES/PROCEDURES Surgical/Procedure History: reports: joint replacement - IMMUNIZATION STATUS Childhood Immunizations: See Nurse Assessment Flu Vaccine: See Nurse Assessment - FAMILY HISTORY Family History: reviewed, not pertinent - SOCIAL HISTORY Smoking: cigarettes (former), chew Substance Use: denies Living Situation: family Physical Exam-General - PHYSICAL EXAM-ADULT Initial Vital Signs Reviewed: Yes - CONSTITUTIONAL General Appearance: alert, no apparent distress. negative: lethargic, slow to respond - HEAD, EARS, NOSE, MOUTH & THROAT HENMT: normocephalic/atraumatic, moist mucous membranes. negative: angioedema - RESPIRATORY Respiratory: chest non-tender, lungs clear, normal breath sounds. negative: crackles, rhonchi, wheezing - CARDIOVASCULAR Cardiovascular: regular rate, rhythm, gallop/S3 (questionable), extra beats (occasional ectopic beats) - GASTROINTESTINAL (ABDOMEN) Abdominal Exam: normal bowel sounds, soft, distended, tenderness (minimal tenderness.), other (questionable fluid wave.). negative: guarding, hernia - MUSCULOSKELETAL Extremity: non-tender, other (4 + pitting edema to bilateral lower extremities.) . negative: deformity, erythema - SKIN Integumentary: normal color, normal turgor, warm/dry. negative: cyanosis, ecchymosis, erythema, jaundice, rash - NEUROLOGIC Neurologic: grossly normal. negative: aphasia, facial droop - PSYCHIATRIC Psych/Mental Status: normal mood/affect, oriented x 3. negative: anxious Progress - PLAN OF CARE/RESULTS Progress/Plan/Lab Results: Vital Signs - 8 hr 08/11/18 11:14 Temperature 98.3 F Pulse Rate 80 Respiratory Rate 18 Blood Pressure 169/72 O2 Sat by Pulse Oximetry 96 Result Diagrams: 08/11/18 12:47 08/11/18 12:47 - REASSESSMENT Reassessment #1 Time Reassessed: 13:57 Status: improving (better after lasix 40mg IV x 2, IV enealapril and NTP for continued HTN) - EKG 1 Time of EKG reading by physician:: 12:19 EKG Read and Signed by:: Chadwick Oates EKG Interpretation (*Must complete 3 of following elements*): Abnormal (rhythm - sinus rhythm with frequent premature ventricular complexes in a pattern of bigeminy. prolonged QT) Rate: 80 QRS: LVH (minimal voltage criteria, may be normal variant;) [place] Interval: normal Comments: ST & T wave abnormality, consider lateral ischemia 2 Time of EKG reading by physician:: 12:20 EKG Read and Signed by:: Chadwick Oates EKG Interpretation (*Must complete 3 of following elements*): Abnormal Rate: 76 Rhythm: sinus rhythm with occasional premature ventricular complexes [place]: normal QRS: LVH (minimal voltage criteria, may be normal variant) [place] Interval: normal Comments: nonspecific T wave abnormality. - XRAY 1 XRAY Study: Chest Impression: See EMR Report ( CHEST-PORTABLE - 08/11/2018 INDICATION: sob COMPARISON: 07/28/2018 FINDINGS: Lung volumes are lower. There is increasing ill-defined infiltrate or atelectasis in the left lower lobe with poor visualiza tion of the left hemidiaphragm. No pneumothorax or large pleural effusion. Heart size is top normal. IMPRESSION: Lower lung volumes. Increasing infiltrate or atelectasis in the left lower lobe. Electronically signed by Cristobal Adorno 08/11/2018 12:45 PM 08/11/18 1245 Interpreting Physician: Cristobal Adorno MD Dictated Date/Time: 08/11/18 1242 cc: Chadwick Oates MD; Juan Pablo Day MD) - CONSULTS/PCP/HOSPITALIST Notification #1 *Consult/PCP/Hospitalist*: Dr. Day Time Discussed: 13:55 Reason/Comments: Dr. Oates consulted with Dr. aDy about patient. Consult Disposition: Admit Departure - Departure Date of Disposition Decision: 08/11/18 Time of Disposition Decision: 13:56 DIAGNOSIS: Proteinuria due to type 2 diabetes mellitus, Hypertensive urgency Congestive heart failure due to high blood pressure Qualifiers: Heart failure type: systolic Heart failure chronicity: acute Qualified Code(s): I11.0 - Hypertensive heart disease with heart failure; I50.21 - Acute systolic (congestive) heart failure Disposition: ADMITTED INPATIENT 09 Certified Medical Emergency: Emergent Condition: Fair Referrals and Follow-Ups: Juan Pablo Day MD [Primary Care Provider] - - Critical Care Note This patient required my direct & personal management of CC.: Yes Total Time (mins): 35 (Management of severe htn with mult meds.) Critical Care Statement: This patient required my direct personal management to treat or rule out processes, the absence of which, could potentiallly result in sudden, clinically significant life or limb threatening deterioration. Attestation - Physician/ COLLETTE Attestation Patient care was provided by Advanced Practice Provider:: No The physician spent face to face time with patient:: Yes Advanced Practice Provider documentation review:: Supervising physician onsite and consulted in the evaluation and care of this patient. The physician did have a face to face encounter with the patient. This chart was documented by the indicated scribe, (Irma Alvarez Scribe) and accurately reflects the services I performed and decisions made by me, Chadwick Oatse MD, as attested by the provider's signature.
[2018-08-11] MEDS: AVODART PO SCH (20:54)
[2018-08-12] MEDS: GLUCOPHAGE XR PO SCH (08:46)
[2018-08-12] MEDS: PRINIVIL PO SCH (08:46)
[2018-08-12] MEDS: HUMULIN N INSULIN (PARKWAY) SUBQ SCH (08:46)
[2018-08-12] MEDS ORDERED: AMARYL PO SCH (09:00)
[2018-08-12] MEDS ORDERED: SYNTHROID PO ONE (11:49)
[2018-08-12] MEDS: AVODART PO SCH (20:58)
[2018-08-13] MEDS ORDERED: AMARYL PO SCH (08:00)
[2018-08-13] MEDS: HUMULIN N INSULIN (PARKWAY) SUBQ SCH (08:40)
[2018-08-13] MEDS: GLUCOPHAGE XR PO SCH (08:40)
[2018-08-13] MEDS: PRINIVIL PO SCH (08:40)
[2018-08-13 13:15] LABS: UR CREATININE 49.5 mg/dL (14-26); UR PROTEIN 128.6 mg/dL
[2018-08-13 13:17] LABS: CREATININE 0.8 mg/dL (0.7-1.2)
--- NOTE | 2018-08-13 14:52 | PROGRESS NOTE ---
DATE: 08/13/2018 SUBJECTIVE: This is a 77-year-old male who was admitted to the hospital because of excessive fluid buildup in his lower extremities. Part of his workup involved a 24-hour urine study. He had a timed urine volume of 2.2 L. His urine creatinine was 49.5. The 24-hour urine creatinine is 1089, creatinine clearance 95, urine total protein 24 hours is 2.822. He is losing fluid through his lower extremities compared to the previous days. OBJECTIVE: Temperature is 97, pulse 74, respiratory rate 20, blood pressure 179/85, O2 saturation was 96%. ASSESSMENT AND PLAN: Current medications are the same as previously. We just left off the Lasix and may resume some Lasix today, but I think he is pushing the nephrotic syndrome with the expected peripheral edema, not so much in the way of heart failure fluid collection but more generalized. He is a diabetic. He has hypertension. We are going to evaluate him with Nephrology consult. cc: Juan Pablo Day MD
[2018-08-13 15:50] VITALS: BP 159/85
[2018-08-13] MEDS ORDERED: LASIX IV ONE ×2 (19:21→19:27)
--- NOTE | 2018-09-08 19:27 | HISTORY AND PHYSICAL ---
HISTORY OF PRESENT ILLNESS: The patient presented complaining of swelling all over. He has noticed the swelling of bilateral lower legs, bilateral hands, and abdomen. Denies a history of CHF. States he is having shortness of breath with exertion. Denies having any chest pain. MEDICATIONS: Metformin 1000 b.i.d., Avodart 0.5 daily, glimepiride 4 mg b.i.d., lisinopril 10 daily, Novolin N 55 units. ALLERGIES: He presents with no allergies. In the ER, they took his vital signs. Temperature was 98, pulse was 80, respiratory rate 18, blood pressure 169/72, O2 saturation 96%. They did some preliminary lab. CBC with hematocrit of 39.7, white count 7,900, platelet count of 240,000, hemoglobin 13. Sodium was 140, potassium 3.4, chloride 105, CO2 27, BUN 15, creatinine 0.8, glucose 228. He was given Lasix 40 IV x2 and IV enalapril and nitro paste for continued hypertension, reportedly doing better. An EKG showed sinus rhythm with frequent premature ventricular complexes in a pattern of bigeminy, a prolonged QT, LVH, possible normal variant, nonspecific ST segment changes. A second EKG did not change. He had a chest x-ray showing lung volumes were low, perhaps from enlarged stomach; increasing ill defined infiltrate or atelectasis in the left lower lobe with poor visualization of the left hemidiaphragm; no pneumothorax or large pleural effusions; heart size was top of normal. So, he was admitted from the ER. DIAGNOSES: 1. Congestive heart failure due to high blood pressure. 2. Proteinuria due to type 2 diabetes. PAST MEDICAL HISTORY: He has a long-standing history of diabetes. DATA BASE: He had the aforementioned CBC. White count was 7,000, hematocrit was 39, platelet count was 240,000. Coagulation profile: INR was 0.99. He had regular glucoses done that ranged from the 100s to the 250 range, 276. When he got in his sodium was 140, potassium 3.4, chloride 105, CO2 27, BUN 15, creatinine 0.8, GFR greater than 60, BUN/creatinine ratio 19, calcium 8.6, total bilirubin 0.3, ALT 9, AST 9, alkaline phosphatase 85. proBNP 518. TSH 5.78. Total protein 5.8. Albumin 3.2. His urine had 3+ protein. A urine quantitative was ordered. REVIEW OF SYSTEMS: He denies any chills, fever, or fatigue. Eyes: No visual acuity changes. No irritation. Ears, nose, and throat: No pharyngitis, sinusitis, rhinitis, or otitis. Cardiovascular: Denies chest pain, heart murmur, or rhythm disturbance. Respiratory: Short of breath. Denies coughing and wheezing. Gastrointestinal: No nausea, vomiting, diarrhea, constipation, bloody or black stools. Genitourinary: No dysuria, hematuria, polyuria, or pyuria. No urine problems that he has historically. Musculoskeletal: No arthralgias, arthritis. Skin: He has swelling of both lower legs, hands, and abdomen. Neurologic: No focal neurologic deficits. Psychiatric: Negative. Endocrine: No polyuria, polydipsia, or polyphagia. No heat or cold intolerance. He has diabetes and has had it for a while. Hematologic: No asthma, sinusitis, rhinitis. He has a long-standing history of hypertension. He denies any significant respiratory disorders. PAST SURGICAL HISTORY: He has had a hip replacement in the past. SOCIAL HISTORY: He is a former smoker, is not smoking now, chews. PHYSICAL EXAMINATION: HEAD: Normocephalic. EYES: PERRL. EOMs intact. Moist mucous membranes. NECK: Supple without JVD. Midline trachea. No thyromegaly. RESPIRATORY: Diminished breath sounds. Lungs grossly clear. Normal breath sounds. CARDIOVASCULAR: Regular rhythm and rate. Had an occasional ectopic. ABDOMEN: Normal bowel sounds. Soft. Distended. Minimally tender. Negative for hernia. EXTREMITIES: Lower extremities had some pitting edema. SKIN: Negative. NEUROLOGICAL: Intact. ADMITTING DIAGNOSES: 1. Fluid overload. 2. History of chronic obstructive pulmonary disease. 3. Diabetes. MICROBIOLOGY: Not pertinent. LABORATORY: We did a timed urine collection because he has such proteinuria. Total volume was 2200 mL. Urine creatinine was 49.5. Creatinine clearance was 95. Total protein put out was 2829. 2+ glucose. I am thinking from our data base, you know he has a low protein at 5.8, albumin is 3.2, and over 2 grams of protein. He has the nephrotic syndrome. No signs of heart failure. He also happens to have a low thyroid. TSH was 5.78. So his admitting diagnosis was probably anasarca from nephrotic syndrome, hypertension, background of diabetes and COPD. So, he was discharged home to continue on metformin, lisinopril 10, NPH, glimepiride, and Avodart. We will pursue his proteinuria. cc: Juan Pablo Day MD
--- NOTE | 2018-09-10 13:08 | PROGRESS NOTE ---
DATE: 08/12/2018 SUBJECTIVE: The patient was admitted for possible fluid overload, COPD, but in fact had a nephrotic syndrome and peripheral edema secondary to that compounded by COPD and hypothyroidism. He is a diabetic with hypertension and BPH. OBJECTIVE: His vital signs, on 08/13 his temperature was 97.9, respiratory rate was 18, BP was 158/77. He had minimal edema in his lower extremities. His electrocardiogram done on 08/11 was sinus rhythm with frequent PVCs, nonspecific ST segment changes. His chest x-ray on 08/11: Lower lung volumes, increasing infiltrates or atelectasis in the left lower lobe, and his serial sugars are pretty much within normal range. He had on his admitting lab a total protein of 5.8, albumin 3.2, TSH was 578. Cardiacs were negative and urinalysis on discharge on 08/13. He is putting out 2800 mg of protein. Creatinine clearance 4.95. We are discharging him and going to have him referred to a urologist. cc: Juan Pablo Day MD
--- NOTE | 2018-09-10 19:39 | DISCHARGE SUMMARY ---
ADMISSION DATE: 08/11/2018 DISCHARGE DATE: 08/13/2018 This is a patient of mine, diabetic on metformin, glimepiride and Novolin insulin 55 units along with lisinopril for his blood pressure and Avodart. The patient presented to the Emergency Room, where he was seen and they thought that he had congestive heart failure due to high blood pressure, proteinuria due to type 2 diabetes mellitus. He had some edema but he had no signs whatsoever of heart failure. He has some COPD and his diabetes is the problem but his edema that was causing him a lot of consternation. We studied his urine. He had total protein of 2829; total volume was 2220 mL. Urine creatinine was 495, creatinine clearance was at 95%. Total protein was 289 with 2+ glucose. So it seemed that his issues were he has a nephrotic syndrome that we need to work up, probably related to his diabetes. We are going plan on making arrangements to see a manager van and continue his care from there. cc: Juan Pablo Day MD
== END 2018-08-13 19:46 | disposition home or self-care (01) | DRG 700 ==
LOC: P.ED 11:09 → P.MEDSURG 14:57
PROVIDERS: ADMIT Internal Medicine; ATTEND Internal Medicine
CPT/HCPCS: 71010; 71045; 80053; 81001; 81050; 82550; 82575; 82948; 83880; 84156; 84443; 84484; 85025; 85610; 93005; 96374; 96375; 96376; 99285; 99291; A9270; J1815; J1940; XXXXX

== ENCOUNTER 2018-10-22 07:54 | Inpatient (IN) ==
--- NOTE | 2018-10-22 08:08 | EKG Report ---
Test Performed on : 10/22/2018 08:02:15 AM Test Reason : SOB Blood Pressure : / mmHG Vent. Rate : 082 BPM Atrial Rate : 082 BPM P-R Int : 148 ms QRS Dur : 098 ms QT Int : 376 ms P-R-T Axes : 060 004 014 degrees QTc Int : 439 ms Sinus rhythm. with premature supraventricular complexes. and with occasional premature ventricular co mplexes. Nonspecific ST and T wave abnormality Abnormal ECG When compared with ECG of 11-AUG-2018 12:19, premature supraventricular complexes. are now present Unconfirmed Result
[2018-10-22] MEDS ORDERED: LASIX IV ONE (08:38)
--- NOTE | 2018-10-22 08:38 | PROVIDER DOCUMENTATION ---
HPI-Respiratory General - General Chief Complaint: Shortness of Breath Stated Complaint: SOB Time Seen by Provider: 10/22/18 08:22 Allergies/Adverse Reactions: Patient Allergies Allergy/AdvReac Type Severity Reaction Status Date / Time No Known Allergies Allergy Verified 10/22/18 09:37 Home Medications: Home Medication List Medication Instructions Recorded Confirmed Last Taken Type Metformin E.r. [Glucophage Xr] 1,000 mg PO BID 06/10/18 10/22/18 08/11/18 History Dutasteride [Avodart] 0.5 mg PO DAILY #30 cap 06/28/18 08/11/18 08/11/18 Rx Glimepiride 4 mg PO BID #1 tab 06/28/18 10/22/18 08/11/18 Rx LISINOpril [Prinivil] 10 mg PO DAILY #120 tab 06/28/18 10/22/18 08/10/18 Rx NPH, Human Insulin Isophane 55 unit SQ DAILY #1 ml 06/28/18 10/22/18 08/11/18 Rx [Novolin N] Hydralazine [Apresoline] 50 mg PO TID 10/22/18 10/22/18 Unknown History Isosorbide Dinitrate 10 mg PO TID 10/22/18 10/22/18 Unknown History Tamsulosin [Flomax] 0.4 mg PO DAILY 10/22/18 10/22/18 Unknown History - History of Present Illness-Resp Nature of Presenting Problem: nonsmoker pt presented with worsening shortness of breath for 2 moths, a ssociated with fluid retention and abdominal distention. no history of COPD, possible CHF. no fever or cough was reported. patient was supposed to take lasix, no diuretic med today. Quality of Pain: reports: none Severity in ED: reports: moderate Onset/Duration: reports: gradual, other (for 2 months) Timing: reports: still present Context: reports: multiple patients with similar complaints. denies: recent foreign travel, insect bite (possible tick), recent chemotherapy Cough Quality/Degree: reports: no cough Episode Frequency: chronic episodes Modifying Factors: improves with: exertion Associated Symptoms: reports: shortness of breath. denies: chest pain/soreness, sore throat, wheezing Similar Symptoms Previously?: Yes Review of Systems - Adult - REVIEW OF SYSTEMS - ADULT Constitutional: reports: fatique. denies: fever Eyes: reports: no symptoms reported Ears, Nose, Mouth & Throat: reports: no symptoms reported Cardiovascular: reports: see HPI Respiratory: reports: see HPI, dyspnea on exertion, shortness of breath. denies: hemoptysis, wheezing Gastrointestinal: reports: no symptoms reported Genitourinary: reports: no symptoms reported Musculoskeletal: reports: no symptoms reported Integumentary: reports: no symptoms reported Neurological: reports: no symptoms reported Psychiatric: reports: no symptoms reported, anti-depressant use Hematologic/Lymphatic: reports: no symptoms reported Allergic/Immunologic: reports: no symptoms reported Past History - Adult - PAST MEDICAL HISTORY-ADULT Review of Records: reports: Nursing Assessment Review Cardiovascular: reports: HTN Endocrine/Immune: reports: Diabetes - PRIOR SURGERIES/PROCEDURES Surgical/Procedure History: reports: joint replacement - IMMUNIZATION STATUS Childhood Immunizations: See Nurse Assessment Flu Vaccine: See Nurse Assessment Physical Exam-General - PHYSICAL EXAM-ADULT Initial Vital Signs Reviewed: Yes - CONSTITUTIONAL General Appearance: alert, mild distress - EYES Eyes: PERRL/EOMI - HEAD, EARS, NOSE, MOUTH & THROAT HENMT: normocephalic/atraumatic - NECK Neck: non-tender, full range of motion, supple - RESPIRATORY Respiratory: lungs clear, normal breath sounds - CARDIOVASCULAR Cardiovascular: normal peripheral pulses, regular rate, rhythm - GASTROINTESTINAL (ABDOMEN) Abdominal Exam: distended, other (swelling, dull percussion) - LYMPHATIC Lymphatic: no adenopathy - MUSCULOSKELETAL Back Exam: normal inspection, no CVA tenderness, no vertebral tenderness Extremity: swelling - SKIN Integumentary: normal color, normal turgor - NEUROLOGIC Neurologic: adult educator II-XII nml as tested, grossly normal, no motor/sensory deficits - PSYCHIATRIC Psych/Mental Status: normal mood/affect Progress - PLAN OF CARE/RESULTS Progress/Plan/Lab Results: Vital Signs - 8 hr 10/22/18 07:57 10/22/18 08:41 10/22/18 09:09 Temperature 97.9 F Pulse Rate 85 79 80 Respiratory Rate 22 16 12 Blood Pressure 210/89 230/100 151/58 O2 Sat by Pulse Oximetry 95 97 97 10/22/18 09:45 10/22/18 10:02 10/22/18 11:02 Temperature Pulse Rate 83 84 84 Respiratory Rate 14 22 13 Blood Pressure 204/109 199/103 O2 Sat by Pulse Oximetry 97 97 98 10/22/18 11:15 10/22/18 11:30 10/22/18 11:32 Temperature Pulse Rate 93 H 82 87 Respiratory Rate 23 17 18 Blood Pressure 174/89 O2 Sat by Pulse Oximetry 93 L 96 94 L 10/22/18 11:45 10/22/18 12:00 10/22/18 12:02 Temperature Pulse Rate 83 81 79 Respiratory Rate 23 4 L 11 L Blood Pressure 191/98 O2 Sat by Pulse Oximetry 94 L 96 96 Laboratory Results - last 24 hr 10/22/18 10/22/18 10/22/18 09:10 09:10 09:10 WBC 7.96 RBC 4.97 Hgb 13.3 L Hct 40.9 L MCV 82.3 MCH 26.8 L MCHC 32.5 L RDW Std Deviation 14.8 H Plt Count 263 MPV 10.4 Immature Gran % (Auto) 0.0 Neut % (Auto) 66.9 Lymph % (Auto) 20.0 L Morgan % (Auto) 8.4 Eos % (Auto) 3.8 Baso % (Auto) 0.9 H Immature Gran # (Auto) 0.00 Neut # (Auto) 5.33 Lymph # (Auto) 1.59 Morgan # (Auto) 0.67 H Eos # (Auto) 0.30 Baso # (Auto) 0.07 Specimen Type Sample Site pH pCO2 pO2 HCO3 Base Excess Oxyhemoglobin ABG O2 Sat (Calculated) ABG O2 Saturation ABG Carboxyhemoglobin ABG Methemoglobin Devonte Test A-a O2 Difference Total Hemoglobin Lactate Blood Gas Modality FiO2 % Sodium 144 Potassium 3.4 L Chloride 105 Carbon Dioxide 28 Anion Gap 11 BUN 13 Creatinine 0.9 Estimated GFR/1.73 m2 > 60 BUN/Creatinine Ratio 14 Glucose 126 H POC Glucose Calculated Osmolality 288 Calcium 8.3 L Total Bilirubin 0.36 AST 23 ALT 29 Alkaline Phosphatase 111 Troponin T Bsd-P-Lhmiipyjlbt Pept 555 H Total Protein 6.0 L Albumin 3.5 Globulin 2.5 Albumin/Globulin Ratio 1.4 Urine Source Urine Color Urine Turbidity Urine pH Ur Specific [place] Urine Protein Ur Glucose (Stick) Ur Ketones (Stick) Urine Blood Urine Nitrite Urine Bilirubin Urobilinogen Dipstick Urine Leukocytes Urine WBC (Auto) Urine RBC (Auto) U Epithel Cells (Auto) Urine Bacteria (Auto) 0910/22/18 10/22/18 09:10 09:15 11:31 WBC RBC Hgb Hct MCV MCH MCHC RDW Std Deviation Plt Count MPV Immature Gran % (Auto) Neut % (Auto) Lymph % (Auto) Morgan % (Auto) Eos % (Auto) Baso % (Auto) Immature Gran # (Auto) Neut # (Auto) Lymph # (Auto) Morgan # (Auto) Eos # (Auto) Baso # (Auto) Specimen Type ARTERIAL Sample Site R RADIAL pH 7.40 pCO2 46 H pO2 87 HCO3 27.2 H Base Excess 3.0 Oxyhemoglobin 95.6 ABG O2 Sat (Calculated) 17.7 ABG O2 Saturation 98.0 ABG Carboxyhemoglobin 1.50 ABG Methemoglobin 1.0 Devonte Test YES A-a O2 Difference 55.0 Total Hemoglobin 13.1 Lactate 1.00 Blood Gas Modality CANNULA FiO2 % 28.0 Sodium Potassium Chloride Carbon Dioxide Anion Gap BUN Creatinine Estimated GFR/1.73 m2 BUN/Creatinine Ratio Glucose POC Glucose 112 H Calculated Osmolality Calcium Total Bilirubin AST ALT Alkaline Phosphatase Troponin T < 0.010 Dvj-V-Eomwsoeugiy Pept Total Protein Albumin Globulin Albumin/Globulin Ratio Urine Source Urine Color Urine Turbidity Urine pH Ur Specific [place] Urine Protein Ur Glucose (Stick) Ur Ketones (Stick) Urine Blood Urine Nitrite Urine Bilirubin Urobilinogen Dipstick Urine Leukocytes Urine WBC (Auto) Urine RBC (Auto) U Epithel Cells (Auto) Urine Bacteria (Auto) 10/22/18 12:06 WBC RBC Hgb Hct MCV MCH MCHC RDW Std Deviation Plt Count MPV Immature Gran % (Auto) Neut % (Auto) Lymph % (Auto) Morgan % (Auto) Eos % (Auto) Baso % (Auto) Immature Gran # (Auto) Neut # (Auto) Lymph # (Auto) Morgan # (Auto) Eos # (Auto) Baso # (Auto) Specimen Type Sample Site pH pCO2 pO2 HCO3 Base Excess Oxyhemoglobin ABG O2 Sat (Calculated) ABG O2 Saturation ABG Carboxyhemoglobin ABG Methemoglobin [place] Test A-a O2 Difference Total Hemoglobin Lactate Blood Gas Modality FiO2 % Sodium Potassium Chloride Carbon Dioxide Anion Gap BUN Creatinine Estimated GFR/1.73 m2 BUN/Creatinine Ratio Glucose POC Glucose Calculated Osmolality Calcium Total Bilirubin AST ALT Alkaline Phosphatase Troponin T Qnv-L-Tljwrgxgycq Pept Total Protein Albumin Globulin Albumin/Globulin Ratio Urine Source CLEAN CATCH Urine Color STRAW Urine Turbidity CLEAR Urine pH 7.0 Ur Specific [place] 1.007 Urine Protein TRACE A Ur Glucose (Stick) NEGATIVE Ur Ketones (Stick) NEGATIVE Urine Blood NEGATIVE Urine Nitrite NEGATIVE Urine Bilirubin NEGATIVE Urobilinogen Dipstick NORMAL Urine Leukocytes NEGATIVE Urine WBC (Auto) <10 Urine RBC (Auto) <10 U Epithel Cells (Auto) <10 Urine Bacteria (Auto) NEGATIVE Orders Category Date Time Status Admit - [facility] Routine AdmDCTranf 10/22/18 11:32 Active Activity - Up with Assistance ORDERED Care 10/22/18 11:32 Active FSBS/Accucheck Result AC + HS Care 10/22/18 11:20 Active Intake and Output-Strict ORDERED Care 10/22/18 13:23 Active Nursing- Assist w/ IS as order ORDERED Care 10/22/18 13:23 Active Saline Loc NOW Care 10/22/18 08:23 Active Vital Signs Order Q 4-HR ASSESS Care 10/22/18 13:23 Active Z-Document. for Tele Applied ORDERED Care 10/22/18 13:23 Active Social Service Consult Routine Cons 10/22/18 13:23 Active Diabetic Diet Diet 10/22/18 11:32 Active CHEST-2 VIEWS [RAD] Routine Exams 10/23/18 06:00 Ordered CHEST-PORTABLE [RAD] Stat Exams 10/22/18 08:[address] ABDOMEN/PELVIS W/O CONTRAST [CT] Stat Exams 10/22/18 09:57 Completed ABG [RESP] Routine Lab 10/22/18 09:15 Completed CBC WITH DIFF [HEME] Routine Lab 10/23/18 06:00 Ordered CBC WITH DIFF [HEME] Stat Lab 10/22/18 09:10 Completed CK TOTAL [CHEM] Routine Lab 10/23/18 06:00 Ordered COMPREHENSIVE METABOLIC PANEL [CHEM] Routine Lab 10/23/18 06:00 Ordered COMPREHENSIVE METABOLIC PANEL [CHEM] Stat Lab 10/22/18 09:10 Completed MAGNESIUM [CHEM] Routine Lab 10/23/18 06:00 Ordered PRO B-NATRIURETIC PEPTIDE Stat Lab 10/22/18 09:10 Completed PROTIME WITH INR [COAG] Routine Lab 10/23/18 06:00 Ordered PTT [COAG] Routine Lab 10/23/18 06:00 Ordered TROPONIN T Routine Lab 10/23/18 06:00 Ordered TROPONIN T Stat Lab 10/22/18 09:10 Completed TSH Routine Lab 10/23/18 06:00 Ordered UA NIMS W/REFLEX CULT [URINALYSIS] Routine Lab 10/22/18 12:06 Completed Acetaminophen [Tylenol] Med 10/22/18 11:32 Active 650 mg PO Q6H PRN PRN Albuterol 2.5MG/Ipratrop 0.5MG [Duoneb (A & A)] Med 10/22/18 11:32 Active 3 ml INH RTQ4H Budesonide [Pulmicort] Med 10/22/18 19:30 Active 0.5 mg INH RTBID Enoxaparin [Lovenox] Med 10/23/18 09:00 Active 40 mg SUBQ Q24H Furosemide [Lasix] Med 10/22/18 21:00 Active 40 mg IV Q12H Furosemide [Lasix] Med 10/22/18 08:38 Discontinued 80 mg IV NOW ONE Hydralazine [Apresoline] Med 10/22/18 14:00 Active 50 mg PO TID@0800,1400,2100 Insulin Human NPH [Humulin N] Med 10/23/18 09:00 Active 55 unit SUBQ DAILY Insulin Human Regular [Humulin R] Med 10/22/18 16:00 Active See Protocol SUBQ 0700,1100,1600,2100 Isosorbide Dinitrate [Isordil] Med 10/22/18 14:00 Active 10 mg PO TID@0800,1400,2100 LISINOpril [Prinivil] Med 10/22/18 11:30 Active 10 mg PO DAILY Metoprolol [Lopressor] Med 10/22/18 11:21 Discontinued 5 mg IV NOW ONE Ondansetron [Zofran] Med 10/22/18 11:32 Active 4 mg IV Q4H PRN PRN Tamsulosin [Flomax] Med 10/22/18 11:30 Active 0.4 mg PO DAILY Aerosol Treatments Routine Oth 10/22/18 11:32 Completed Incentive Spirometer Routine Oth 10/22/18 13:23 Completed Oxygen Device Routine Oth 10/22/18 13:23 Completed Pulse Oximetry Routine Oth 10/22/18 13:23 Completed Telemetry [OM.EQ] Routine Oth 10/22/18 13:23 Active EKG [EKG] Routine Ther 10/23/18 08:00 Ordered EKG [EKG] Stat Ther 10/22/18 08:02 Draft Transfer/Admit Order [TRANSFER] Routine Transfer 10/22/18 11:22 Completed Result Diagrams: 10/22/18 09:10 10/22/18 09:10 - EKG 1 Time of EKG reading by physician:: 08:02 EKG Interpretation (*Must complete 3 of following elements*): Abnormal Rate: 82 Rhythm: sinus rythm w/ premature supraventricular complexes w/ occ pvc Fults: normal QRS: normal, PVC's [place] Interval: normal Comments: nonspecific ST and T wave abnormality - CONSULTS/PCP/HOSPITALIST Notification #1 *Consult/PCP/Hospitalist*: KENDRICK Time Discussed: 10:40 Consult Disposition: Admit Departure - Departure Date of Disposition Decision: 10/22/18 Time of Disposition Decision: 10:39 DIAGNOSIS: Fluid retention, Pulmonary edema Disposition: ADMITTED INPATIENT 09 Certified Medical Emergency: Emergent Condition: Fair - Critical Care Note This patient required my direct & personal management of CC.: No Attestation - Physician/ COLLETTE Attestation Patient care was provided by Advanced Practice Provider:: No The physician spent face to face time with patient:: Yes Advanced Practice Provider documentation review:: Supervising physician onsite and consulted in the evaluation and care of this patient. The physician did have a face to face encounter with the patient.
--- NOTE | 2018-10-22 08:53 | Diag Imaging Result Doc PS360 ---
EXAM: CHEST-PORTABLE 10/22/2018 HISTORY: shortness of breath TECHNIQUE: AP portable at 0835 COMMENT: There is interstitial pulmonary edema which is worse than on 08/11/2018. The heart size is slightly enlarged. IMPRESSION: Pulmonary edema. Electronically signed by Ted Garcia 10/22/2018 8:50 AM
[2018-10-22 09:20] LABS: ALLEN TEST YES; BLOOD TYPE ARTERIAL; HCO3-(ACT) 27.2 mmoll (20.0-26.0); O2(CT) 17.7 mL/dL (15.0-23.0); O2HB 95.6 % (95.0-99.0); PCO2(98.6) 46 mmHg (35-45); PO2(98.6) 87 mmHg (60-100); SAMPLE BLOOD; THB 13.1 g/dL (11.5-17.4)
[2018-10-22 09:21] LABS: MODALITY CANNULA
[2018-10-22 09:24] LABS: BASO# 0.07 X1000 (0.0-0.2); BASO% 0.9 % (0.0-0.8); EOS% 3.8 % (0.0-10.0); HEMATOCRIT 40.9 % (42.0-52.0); HEMOGLOBIN 13.3 g/dL (14.0-18.0); LYMPH# 1.59 X1000 (1.2-3.4); MCH 26.8 PG (27-31); MCHC 32.5 g/dL (33-37); MCV 82.3 FL (81-99); MONO# 0.67 X1000 (0.11-0.59); MONO% 8.4 % (1.7-9.3); MPV 10.4 FL (7.4-10.4); NEUT# 5.33 X1000 (1.4-6.5); NEUT% 66.9 % (42.2-75.2); PLT 263 X1000 (130-400); RBC 4.97 XMIL (4.7-6.1); RDW 14.8 % (11.5-14.5); WBC 7.96 X1000 (4.8-10.8)
[2018-10-22 09:42] LABS: AGAP 11; ALB/GLOB RATIO 1.4; ALBUMIN 3.5 g/dL (3.5-5.0); ALKALINE PHOSPHATASE 111 U/L (32-122); BUN 13 mg/dL (8-22); CALCIUM 8.3 mg/dL (8.8-10.2); CHLORIDE 105 mmol/L (98-107); COSMO 288; CREATININE 0.9 mg/dL (0.7-1.2); ESTIMATED GFR > 60; GLUCOSE 126 mg/dL (70-104); GOT 23 U/L (10-34); GPT 29 U/L (10-44); POTASSIUM 3.4 mmol/L (3.5-5.1); SODIUM 144 mmol/L (136-145); TCO2 28 mmol/L (25-35); TOTAL BILIRUBIN 0.36 mg/dL (0.20-1.00)
--- NOTE | 2018-10-22 11:16 | Diag Imaging Result Doc PS360 ---
EXAM: CT ABDOMEN/PELVIS W/O CONTRAST INDICATION: Abdominal swelling and distention TECHNIQUE: This exam was performed using automated exposure control, adjustment of mA or kV according to patient size, and/or use of iterative reconstruction technique. COMPARISON: None. FINDINGS: There are bilateral zynfq-kb-gzjzwzkn sized pleural effusions and there is adjacent bibasilar atelectasis. There is interstitial thickening at the lung bases suggesting edema. The liver, gallbladder, and spleen are unremarkable. The pancreas appears atrophic and is unremarkable, otherwise. There is a 1.4 cm left adrenal nodule. Its density is highly consistent with an adenoma. The adrenal glands are unremarkable, otherwise. There are no renal stones and there is no hydronephrosis. The kidneys are unremarkable, otherwise. The urinary bladder appears normal as imaged. The prostate is mildly prominent. The appendix is normal. There are a very few sigmoid colonic diverticula with no evidence of diverticulitis. There is no obstructive bowel pattern. The remainder of the GI tract is essentially unremarkable. No focal inflammation, free abdominal gas, or free fluid is identified. There is no evidence of acute osseous abnormality. IMPRESSION: 1.Bilateral mlwwd-xj-zpckaiss sized pleural effusions with adjacent atelectasis and interstitial edema at both lung bases. 2.Other incidental/nonacute findings detailed above. No evidence of acute pathology involving the abdomen or pelvis. Electronically signed by Baljit Samaniego 10/22/2018 11:13 AM
[2018-10-22] MEDS ORDERED: LOPRESSOR IV ONE (11:21)
[2018-10-22] MEDS ORDERED: TYLENOL PO PRN (11:32)
[2018-10-22] MEDS ORDERED: ZOFRAN IV PRN (11:32)
[2018-10-22] MEDS: DUONEB (A & A) INH SCH ×4 (11:32→23:30)
[2018-10-22 12:11] LABS: URINE SOURCE CLEAN CATCH
[2018-10-22 12:15] LABS: BILIRUBIN URINE NEGATIVE (NEGATIVE); BLOOD URINE NEGATIVE (NEGATIVE); COLOR STRAW; GLUCOSE URINE NEGATIVE (NEGATIVE); KETONE URINE NEGATIVE (NEGATIVE); LEUKOCYTES URINE NEGATIVE (NEGATIVE); NITRITE URINE NEGATIVE (NEGATIVE); PROTEIN URINE TRACE mg/dL (NEGATIVE); SP GRAVITY URINE 1.007; TURBIDITY URINE CLEAR (CLEAR); UROBILINOGEN URINE NORMAL (NORMAL)
[2018-10-22 12:17] LABS: UR EPITHELIAL CELLS <10 /HPF (<10); URINE BACTERIA NEGATIVE /HPF; URINE RBC <10 /HPF (<10); URINE WBC <10 /HPF (<10)
[2018-10-22] MEDS: FLOMAX PO SCH (13:35)
[2018-10-22] MEDS: PRINIVIL PO SCH (13:36)
[2018-10-22] MEDS: ISORDIL PO SCH ×2 (18:00→20:41)
[2018-10-22] MEDS: APRESOLINE PO SCH ×2 (18:00→20:41)
[2018-10-22] MEDS: HUMULIN R SUBQ SCH ×2 (18:08→20:49)
[2018-10-22] MEDS: PULMICORT INH SCH (19:44)
--- NOTE | 2018-10-22 20:16 | HISTORY AND PHYSICAL ---
PRIMARY CARE PROVIDER: Dr. Day. MATCHER LEATHER PARTS: Dr. Villegas. CHIEF COMPLAINT: Shortness of breath, swelling, chest tingling. HISTORY OF PRESENT ILLNESS: Mr. Mayco Martell is an 78-year-old male with a medical history of congestive heart failure, diabetes mellitus type 2, hypertension, hyperlipidemia, spinal stenosis. He is now here with complaints of what he states he has been having swelling for a long time mainly in the lower extremities, but over the last 2 weeks he has noticed more swelling in the abdomen as well. Around 3 weeks ago, he presented to Dr. Villegas with the complaints of increased swelling over the last few months and was told to start 2 new medications, but unfortunately they could not remember which 2 new medications it was, and it was a week after that they noticed that he started having even more swelling. What happened is he started having some shortness of breath. Through the night had difficulties with sleeping. He feels like more swelling is from the abdominal girth that is causing him to have shortness of breath. He does occasionally have these chest tingling spells that does not really radiate. No nausea. No actual chest pain type symptoms to go with it. When he presented his blood pressure was significantly elevated in the 200s over 100s range. He received 80 mg of IV Lasix and resumed on his antihypertensives. He has since stated that his shortness of breath is much better, and he is having a lot of urine output. We will admit him to the medical floor for diuresis and uncontrolled hypertension. PAST MEDICAL HISTORY: 1. Hypertensive heart disease with congestive heart failure, although last echocardiogram last month did not show any abnormal ejection fraction. 2. Diabetes mellitus type 2. 3. Hypertension tends to be uncontrolled. 4. Hyperlipidemia. 5. Spinal stenosis. 6. GERD. 7. BPH. PAST SURGICAL HISTORY: Essentially his whole arm has a scar on it, but I believe it was left elbow. He has had knee surgery. He has had bilateral hip replacements. SOCIAL HISTORY: Half pack per day smoker for 40 years. He stopped 20 years ago. Now he uses tobacco pouches, about 7 per day. No alcohol or illicit drug use. Lives at home with his . He walks with a cane. FAMILY HISTORY: Father had hypertension and heart attack. ALLERGIES: No known drug allergies. HOME MEDICATIONS: 1. Apresoline 50 mg p.o. t.i.d. 2. Flomax 0.4 mg p.o. daily 3. Metformin 1000 mg p.o. twice daily. 4. Isosorbide dinitrate 10 mg p.o. t.i.d. 5. Glimepiride 4 mg p.o. twice daily. 6. NPH 55 units subcutaneous daily. 7. Lisinopril 10 mg p.o. daily. REVIEW OF SYSTEMS: Fourteen-point review of systems are complete, and all were negative except for those mentioned in above HPI. PHYSICAL EXAMINATION: VITAL SIGNS: Temperature 97.9 degrees, heart rate 73, respiratory rate 19, blood pressure 161/86, O2 saturation 96% on 2 L nasal cannula. GENERAL: Mr. Mayco Martell is an 78-year-old male who is in no acute distress. He is sitting on the side of the bed eating dinner. He is able answer questions appropriately. HEENT: Atraumatic, normocephalic. Pupils equal, round, reactive to light. Extraocular movements intact. Mucous membranes are moist. NECK: Trachea midline. CARDIOVASCULAR: S1, S2. Regular rate and rhythm. No rubs, gallops, murmurs. He has got +2 lower extremity edema and some abdominal distention or slight edema in the abdomen. +1 dorsalis pedal pulses, +2 radial pulses. Negative for JVD, but he was at 90 degrees angle. Negative for carotid bruits. PULMONARY: Crackles bilateral bases. No accessory muscle use or work of breathing noted. He is clear everywhere else anteriorly and posteriorly, is tolerating nasal cannula. GASTROINTESTINAL: Soft, nontender, nondistended. Positive bowel sounds x4. Some edema noted. EXTREMITIES: Moves all extremities equally. Decreased range of motion. NEUROLOGIC: A and O x3. Follows commands. Sensory is intact. SKIN: Warm, dry and intact. LABORATORY DATA: White blood cells 7000, hemoglobin 13, hematocrit 40, platelet count 263,000. ABGs: pH 7.40, pCO2 46, pO2 87, bicarb 27, base excess 3.0, saturation 95%, lactate 1.0. Sodium 144, potassium 3.4, BUN 13, creatinine 0.9, glucose 126, calcium 8.3, bilirubin 0.36, AST 23, ALT 29, troponin less than 0.01. ProBNP 555, albumin 3.5. Urinalysis trace protein. IMAGING: Chest x-ray: Pulmonary edema. Abdominal/pelvic CT: Bilateral small to moderate size pleural effusions, interstitial edema. EKG: Normal sinus rhythm with PVCs. Rate 82, QTc 439. ASSESSMENT AND PLAN: 1. Hypertensive heart disease. Resumed all of his home medications. I gave him extra doses of IV Lasix so he will be on his hydralazine 50 p.o. t.i.d., will be on isosorbide 10 t.i.d., lisinopril 10 daily and then he got an IV dose of 5 of metoprolol. 2. Acute on chronic systolic congestive heart failure with preserved ejection fraction at this time secondary to hypertension that is uncontrolled. ProBNP is only 555. He has pulmonary edema and pleural effusions on his x-ray and his lower extremity edema as well so we will continue him on the Lasix twice a day. I could consider adding him a beta-fred to his medication regimen. He is not on any beta-blockers that I could tell if his medication list is correct. He is not on an aspirin either. Might could consider starting an aspirin. 3. Diabetes mellitus type 2. We will do patterned blood glucoses and sliding scale insulin. 4. Gastrointestinal reflux disease. We will start him on some Prilosec 5. Deep venous thrombosis prophylaxis: Lovenox. Dictated by PANFILO Feliz for Luis Ramesh MD cc: PANFILO Feliz MD
[2018-10-22] MEDS: LASIX IV SCH (20:41)
[2018-10-22] MEDS: PRILOSEC PO SCH (20:41)
[2018-10-23] MEDS: DUONEB (A & A) INH SCH ×6 (03:24→23:40)
[2018-10-23] MEDS: HUMULIN R SUBQ SCH ×4 (06:16→23:05)
[2018-10-23] MEDS: PRILOSEC PO SCH ×2 (06:17→20:31)
--- NOTE | 2018-10-23 06:35 | EKG Report ---
Test Performed on : 10/23/2018 05:58:58 AM Test Reason : chest pain Blood Pressure : / mmHG Vent. Rate : 089 BPM Atrial Rate : 089 BPM P-R Int : 140 ms QRS Dur : 104 ms QT Int : 384 ms P-R-T Axes : 062 -12 056 degrees QTc Int : 467 ms Sinus rhythm. with frequent premature ventricular complexes. and premature atrial complexes. Nonspecific ST abnormality Abnormal ECG Confirmed by Lana SHOOK, Emmett Camara ([id number]) on 10/23/2018 9:10:17 AM
[2018-10-23 06:45] LABS: BASO# 0.05 X1000 (0.0-0.2); BASO% 0.6 % (0.0-0.8); EOS# 0.18 X1000 (0.0-0.7); EOS% 2.3 % (0.0-10.0); HEMATOCRIT 39.5 % (42.0-52.0); HEMOGLOBIN 12.7 g/dL (14.0-18.0); LYMPH# 1.45 X1000 (1.2-3.4); LYMPH% 18.2 % (20.5-51.1); MCH 26.2 PG (27-31); MCHC 32.2 g/dL (33-37); MCV 81.6 FL (81-99); MONO# 0.65 X1000 (0.11-0.59); MONO% 8.1 % (1.7-9.3); MPV 10.6 FL (7.4-10.4); NEUT# 5.65 X1000 (1.4-6.5); NEUT% 70.8 % (42.2-75.2); PLT 283 X1000 (130-400); RBC 4.84 XMIL (4.7-6.1); RDW 14.9 % (11.5-14.5); WBC 7.98 X1000 (4.8-10.8)
[2018-10-23 06:55] LABS: INR 1.11; PROTIME 14.5 Seconds (11.0-16.0); PTT 30.4 Seconds (22.3-41.8)
[2018-10-23 07:45] LABS: AGAP 12; ALB/GLOB RATIO 1.2; ALBUMIN 3.3 g/dL (3.5-5.0); ALKALINE PHOSPHATASE 101 U/L (32-122); BUN 15 mg/dL (8-22); CALCIUM 8.2 mg/dL (8.8-10.2); CHLORIDE 102 mmol/L (98-107); CK TOTAL 74 U/L (24-204); COSMO 288; ESTIMATED GFR > 60; GLUCOSE 145 mg/dL (70-104); GOT 16 U/L (10-34); GPT 25 U/L (10-44); MAGNESIUM 1.9 mg/dL (1.5-2.7); SODIUM 143 mmol/L (136-145); TCO2 29 mmol/L (25-35); TOTAL BILIRUBIN 0.54 mg/dL (0.20-1.00)
[2018-10-23] MEDS: LASIX IV SCH ×2 (08:21→20:31)
[2018-10-23] MEDS: APRESOLINE PO SCH ×3 (08:21→20:35)
[2018-10-23] MEDS: LOVENOX SUBQ SCH (08:21)
[2018-10-23] MEDS: FLOMAX PO SCH (08:22)
[2018-10-23] MEDS: PRINIVIL PO SCH (08:22)
[2018-10-23] MEDS: ISORDIL PO SCH ×3 (08:22→20:32)
[2018-10-23] MEDS: HUMULIN N SUBQ SCH (10:11)
[2018-10-23] MEDS: PULMICORT INH SCH ×2 (11:07→19:35)
--- NOTE | 2018-10-23 12:08 | Diag Imaging Result Doc PS360 ---
EXAM: CHEST-2 VIEWS INDICATION: sob TECHNIQUE: 2 views COMPARISON: 10/22/2018 FINDINGS: Bilateral interstitial infiltrates are stable to marginally improved and likely represent edema. There is a small left pleural effusion that appears stable. No new consolidation is identified. Cardiac silhouette is stable. IMPRESSION: Stable to marginal improvement of interstitial infiltrates bilaterally. Electronically signed by Baljit Samaniego 10/23/2018 12:05 PM
--- NOTE | 2018-10-23 15:00 | PROGRESS NOTE ---
DATE: 10/23/2018 SUBJECTIVE: As per the patient, he is feeling a little bit better. He is still having shortness of breath. He is still having crackles, we have a negative balance of 2.6 L. I checked his lab work and it looks like back in August, a urine protein was done, and it was close to 3 g, probably the fluid overload is related to an imbalance of the oncotic pressure, echocardiogram done recently on 06/26/2018 is basically unremarkable, his liver enzymes are normal and the urinalysis at this moment showed just trace protein, I will continue with the same management for now. I am getting again a protein to creatinine ratio in the urine and probably upon discharge I will get a follow-up with Nephrology Department to evaluate this patient. OBJECTIVE: Vital Signs: Temperature 97.7 degrees, pulse 91, respiratory rate 16, blood pressure 156/68, oxygen saturation 97% on 2 L of nasal cannula. HEENT: Head normocephalic, no trauma, PERRLA. Neck: Supple. No JVD. No masses. Central trachea. Chest: Decreased breath sounds globally with bilateral crackles, some rhonchi at the bases. Abdomen: Soft, obese, protuberant. Nontender, nondistended. No hepatosplenomegaly. Extremities: 3+ lower extremity edema. No clubbing. No cyanosis. Neurological: The patient is alert he is oriented x3. No focal deficits. LABORATORY: WBC 7.9, hemoglobin 12.7, hematocrit 39.5, platelets 283,000, sodium 143, potassium 3, chloride 102, bicarbonate 29, BUN 15, creatinine 1, glucose 145, calcium 8.2, albumin 3.3. ASSESSMENT AND PLAN: 1. Fluid overload with pulmonary edema, that is why this patient is having shortness of breath. I will continue with Lasix, probably this could be a combination of hypertensive heart disease and proteinuria, I will continue with same management for now. He feels a little bit better compared with yesterday, but he is still having significant shortness of breath. 2. Acute on chronic systolic heart failure. 3. Hypertensive heart disease. I will continue with his home medications. I will continue with the Lasix IV as well. 4. Type 2 diabetes. Continue with the same management, pattern of blood sugar and sliding scale insulin. 5. Gastroesophageal reflux disease. Continue with Prilosec. 6. Deep vein thrombosis prophylaxis with Lovenox. 7. Likely proteinuria, he has a result of almost 3 g of urine done a few months ago, probably he will need to be checked by Nephrology Department probably as an outpatient. For now we will continue with same management. cc: Luis Ramesh MD
[2018-10-23] MEDS: KLOR-CON PO SCH (20:31)
[2018-10-24] MEDS: DUONEB (A & A) INH SCH ×6 (03:30→23:28)
[2018-10-24] MEDS: HUMULIN R SUBQ SCH ×4 (06:18→20:33)
[2018-10-24] MEDS: PRILOSEC PO SCH ×2 (06:19→20:27)
[2018-10-24] MEDS: PULMICORT INH SCH ×2 (08:05→20:12)
[2018-10-24 08:18] LABS: AGAP 11; BUN 17 mg/dL (8-22); CHLORIDE 103 mmol/L (98-107); CHOLESTEROL 109 mg/dL (0-200); COSMO 291; ESTIMATED GFR > 60; GLUCOSE 178 mg/dL (70-104); HDL 45 mg/dL (35-55); LDL 52 mg/dL; POTASSIUM 3.4 mmol/L (3.5-5.1); SODIUM 143 mmol/L (136-145); TCO2 29 mmol/L (25-35); TRIGLYCERIDES 58 mg/dL (39-160); VLDL 12 mg/dL
[2018-10-24] MEDS: ISORDIL PO SCH ×3 (08:18→20:27)
[2018-10-24] MEDS: APRESOLINE PO SCH ×3 (08:18→20:27)
[2018-10-24] MEDS: FLOMAX PO SCH (08:18)
[2018-10-24] MEDS: LASIX IV SCH ×2 (08:18→20:27)
[2018-10-24] MEDS: LOVENOX SUBQ SCH (08:19)
[2018-10-24] MEDS: HUMULIN N SUBQ SCH (08:20)
[2018-10-24] MEDS: PRINIVIL PO SCH (08:33)
[2018-10-24] MEDS: KLOR-CON PO SCH ×3 (08:48→20:27)
[2018-10-24 09:46] LABS: UR CREAT RANDOM 89.8 mg/dL (14-26); UR PROT RANDOM 92.5 mg/dL
--- NOTE | 2018-10-24 14:05 | PROGRESS NOTE ---
DATE: 10/24/2018 SUBJECTIVE: The patient seems to be feeling better today, but he is still having crackles and some shortness of breath. He still has lower extremity edema, around 3+, with abdominal wall edema, anasarca. Echocardiogram recently done on 06/26/2018 is basically unremarkable. Liver enzymes are within normal limits, and the kidney function seems to be fine, but we have resolved from previous lab work that showed a total urine protein in 24 hours of 2829 mg, so this can be the cause of the fluid overload in this patient. OBJECTIVE: Vital Signs: Temperature 98.1 degrees, pulse 82, respiratory rate 18, blood pressure 140/58, oxygen saturation 95% on 2 L of nasal cannula. HEENT: Head normocephalic. No trauma. PERRLA. Neck: Supple. No JVD. No masses. Central trachea. Chest: Decreased breath sounds globally with bilateral crackles, some rhonchi at the bases. Abdomen: Soft, obese, protuberant. Abdominal wall edema. Nontender, nondistended. No hepatosplenomegaly. Extremities: There is 3+ lower extremity edema. No clubbing. No cyanosis. Neurological: Alert and oriented x3. No focal deficits. LABORATORY DATA: Sodium 143, potassium 3.4, chloride 103, bicarbonate 29, BUN 17, creatinine 1, glucose 178, calcium 8. ASSESSMENT AND PLAN: 1. Fluid overload with pulmonary edema/anasarca. That is why this patient was short of breath. Will continue with intravenous Lasix. So far, we have a negative balance of 4 liters. He has been instructed to drink between 1.5 to 2 liters of fluid on a daily basis. Continue with the same management. 2. Hypertensive heart disease. Continue home medications. Blood pressure seems to be better controlled. 3. Type 2 diabetes. Continue with the same management. Pattern blood sugar. Sliding scale insulin. Seems to be stable. 4. Gastroesophageal reflux disease. Continue with proton pump inhibitors. 5. Deep vein thrombosis prophylaxis with Lovenox. 6. Likely proteinuria. He has a result of almost 3 grams of urine done a few months ago. He will need to be checked by Nephrology Department. I will try to get an appointment for him so he can follow up as an outpatient. My plan is to probably discharge this patient tomorrow if he is doing better. cc: Luis Ramesh MD
[2018-10-25] MEDS: DUONEB (A & A) INH SCH (03:28)
[2018-10-25] MEDS: PRILOSEC PO SCH (06:20)
[2018-10-25] MEDS: HUMULIN R SUBQ SCH ×2 (06:28→11:21)
[2018-10-25 08:29] LABS: AGAP 11; BUN 19 mg/dL (8-22); CALCIUM 8.1 mg/dL (8.8-10.2); CHLORIDE 103 mmol/L (98-107); COSMO 289; ESTIMATED GFR > 60; GLUCOSE 172 mg/dL (70-104); POTASSIUM 3.5 mmol/L (3.5-5.1); SODIUM 142 mmol/L (136-145); TCO2 28 mmol/L (25-35)
[2018-10-25] MEDS ORDERED: NORVASC PO SCH (09:00)
[2018-10-25] MEDS: ISORDIL PO SCH ×2 (10:24→13:30)
[2018-10-25] MEDS: PRINIVIL PO SCH (10:24)
[2018-10-25] MEDS: FLOMAX PO SCH (10:24)
[2018-10-25] MEDS: LOVENOX SUBQ SCH (10:25)
[2018-10-25] MEDS: LASIX IV SCH (10:25)
[2018-10-25] MEDS: APRESOLINE PO SCH ×2 (10:25→13:30)
[2018-10-25] MEDS: HUMULIN N SUBQ SCH (10:29)
[2018-10-25 11:53] VITALS: BP 152/60
--- NOTE | 2018-10-25 15:08 | Diag Imaging Result Doc PS360 ---
EXAM: US RENAL 2 (RETROPER) COMPLETE - 10/25/2018 HISTORY: hunter/arf TECHNIQUE: Bilateral renal ultrasound COMPARISON: None. FINDINGS: The right kidney measures 10.4 x 4.8 x 5.7 cm in size and has cortical thickness of approximately 0.9 cm. The left kidney measures 12 x 4.9 x 6.4 cm in size and has cortical thickness of approximately 1.4 cm. There is no renal mass, stone, or hydronephrosis identified. Images of the urinary bladder demonstrate no lesion. IMPRESSION: No visible renal abnormality. Electronically signed by Vinny Harrison 10/25/2018 3:06 PM
--- NOTE | 2018-10-26 09:25 | DISCHARGE SUMMARY ---
ADMISSION DATE: 10/22/2018 DISCHARGE DATE: 10/25/2018 DISCHARGE DIAGNOSES: 1. Anasarca, pulmonary edema. 2. Hypertensive heart disease. 3. Type 2 diabetes. 4. Gastroesophageal reflux disease. 5. Proteinuria. PROCEDURES PERFORMED: Chest x-ray dated 10/22/2018, impression, pulmonary edema. Abdomen and pelvis CT scan dated 10/22/2018, impression, bilateral small to moderate-sized pleural effusions with adjacent atelectasis and interstitial edema at both lung bases. Chest x-ray dated 10/23/2018, impression, stable to marginal improvement of the interstitial infiltrates bilaterally. HOSPITAL COURSE: An 78-year-old male with a past medical history of diabetes, hypertension, hyperlipidemia, spinal stenosis, came to the emergency department complaining of a swelling that has been going on for a very long time, mainly at the level of the lower extremities, but for the past 2 weeks he noticed more swelling in the abdomen as well and shortness of breath. He was admitted on 10/22/2018. Around 3 weeks ago he presented to Dr. Villegas with complaints of increasing swelling over the last few months. He was told to start 2 new medications, but he does not remember the name of them. I saw some results from previous lab work that showed that this patient has been having proteinuria, close to 3 g, also I checked his recent echocardiogram that basically did not show any heart failure, essentially it was unremarkable or at least not related to this presentation. In the emergency department he received around 80 mg of Lasix IV. He was restarted on his home medications and the shortness of breath was much better. I continued with Lasix on a daily basis and actually he has a negative balance of more than 5 L. He is feeling much better today. Because of his proteinuria, I want Nephrology department to evaluate this patient as an outpatient, so I set up an appointment for him in 2 days, 10/27/2018. He will be evaluated by Dr. Parry and prior to discharge today, I will get a renal ultrasound. He feels better. I will check his oxygen to see if he needs to go home with oxygen. Follow up with his primary care doctor in 1 week and follow up with Dr. Parry in 2 days. He will be discharged with furosemide twice a day in the meantime. PHYSICAL EXAMINATION: Vital signs: Temperature 98.1 degrees, pulse 81, respiratory rate 17, blood pressure 170/89, oxygen saturation 96% on 2 L of nasal cannula. HEENT: Head normocephalic, no trauma. PERRLA. Neck: Supple. No JVD. No masses. Central trachea. Chest: Decreased breath sounds globally with some mild rales at the bases. Abdomen: Soft, obese, protuberant. Abdominal wall edema. Nontender, nondistended. No hepatosplenomegaly. Extremities: 2 to 3+ lower extremity edema. No clubbing. No cyanosis. Neurological: The patient is alert. He is oriented x3. No focal deficits. LABORATORY: Sodium 142, potassium 3.5, chloride 103, bicarbonate 28, BUN 19, creatinine 1, glucose 172, calcium 8.1. DISCHARGE MEDICATIONS: Amlodipine 5 mg p.o. b.i.d., Avodart 0.5 mg p.o. daily, furosemide 40 mg p.o. b.i.d., glimepiride 4 mg p.o. b.i.d., hydralazine 50 mg p.o. t.i.d., isosorbide dinitrate 10 mg p.o. t.i.d., lisinopril 10 mg p.o. daily, metformin 1000 mg p.o. b.i.d., Novolin N 55 units subcutaneous daily, potassium chloride 10 mEq p.o. daily, and tamsulosin 0.4 mg p.o. daily. TIME DISCHARGING THIS PATIENT: 35 minutes. FOLLOWUP: With Dr. Parry in 2 days, 10/27/2018 at 2 p.m. and follow with his primary care doctor in 1 week. cc: Luis Ramesh MD
== END 2018-10-25 16:03 | disposition home or self-care (01) | DRG 293 ==
LOC: ED 07:54 → EDIPHOLD 12:09 → 1N 14:27
PROVIDERS: ATTEND Internal Medicine

== ENCOUNTER 2019-03-17 10:28 | Observation (INO) ==
[2019-03-17 11:30] LABS: BASO# 0.04 X1000 (0.0-0.2); BASO% 0.6 % (0.0-0.8); EOS# 0.28 X1000 (0.0-0.7); HEMATOCRIT 42.3 % (42.0-52.0); HEMOGLOBIN 13.6 g/dL (14.0-18.0); IMM GRAN# 0.01 X1000 (0.0-0.04); IMM GRAN% 0.1 % (0.0-0.5); LYMPH# 1.35 X1000 (1.2-3.4); LYMPH% 19.4 % (20.5-51.1); MCH 26.3 PG (27-31); MCHC 32.2 g/dL (33-37); MCV 81.8 FL (81-99); MONO# 0.58 X1000 (0.11-0.59); MONO% 8.3 % (1.7-9.3); MPV 10.9 FL (7.4-10.4); NEUT% 67.6 % (42.2-75.2); PLT 236 X1000 (130-400); RBC 5.17 XMIL (4.7-6.1); RDW 14.7 % (11.5-14.5); WBC 6.96 X1000 (4.8-10.8)
[2019-03-17 11:49] LABS: INR 1.05; PROTIME 14.2 Seconds (11.0-16.0)
--- NOTE | 2019-03-17 11:53 | Diag Imaging Result Doc PS360 ---
EXAM: CHEST-2 VIEWS - 03/17/2019 HISTORY: sob chf TECHNIQUE: Chest two views COMPARISON: 10/23/2018 and 07/28/2018 FINDINGS: Heart size appears upper range of normal. Pulmonary and pleural scarring at the left base. There is generalized slight interstitial marking prominence which appears to be chronic. There is no acute consolidation, gross pulmonary edema, substantial pleural effusion, or pneumothorax identified. IMPRESSION: Scarring at left base. Chronic generalized slight interstitial marking prominence. No discrete acute process. Electronically signed by Vinny Harrison 03/17/2019 11:51 AM
[2019-03-17] MEDS ORDERED: LASIX IV ONE ×3 (11:58→22:32)
[2019-03-17 12:01] LABS: AGAP 11; ALBUMIN 3.4 g/dL (3.5-5.0); ALKALINE PHOSPHATASE 123 U/L (32-122); BUN 13 mg/dL (8-22); CALCIUM 8.6 mg/dL (8.8-10.2); CHLORIDE 105 mmol/L (98-107); CK PROFILE 112 U/L (24-204); COSMO 296; CREATININE 0.8 mg/dL (0.7-1.2); ESTIMATED GFR > 60; GLUCOSE 329 mg/dL (70-104); GOT 15 U/L (10-34); GPT 18 U/L (10-44); POTASSIUM 3.6 mmol/L (3.5-5.1); SODIUM 142 mmol/L (136-145); TCO2 27 mmol/L (25-35); TOTAL PROTEIN 5.9 g/dL (6.3-8.3)
--- NOTE | 2019-03-17 13:01 | PROVIDER DOCUMENTATION ---
This chart was entered by Tonie Santoro Scribe, acting as scribe for Edward Chan MD. HPI-Respiratory General - General Chief Complaint: Shortness of Breath Stated Complaint: SOB Time Seen by Provider: 03/17/19 11:00 Source: patient Allergies/Adverse Reactions: Patient Allergies Allergy/AdvReac Type Severity Reaction Status Date / Time No Known Allergies Allergy Verified 03/17/19 12:13 Home Medications: Home Medication List Medication Instructions Recorded Confirmed Last Taken Type Metformin E.r. [Glucophage Xr] 1,000 mg PO BID 06/10/18 03/17/19 08/11/18 History Glimepiride 4 mg PO BID #1 tab 06/28/18 03/17/19 08/11/18 Rx LISINOpril [Prinivil] 10 mg PO DAILY #120 tab 06/28/18 03/17/19 08/10/18 Rx NPH, Human Insulin Isophane 55 unit SQ DAILY #1 ml 06/28/18 03/17/19 08/11/18 Rx [Novolin N] Potassium Chloride [Kaon-Cl 10] 10 meq PO DAILY #30 tablet.er 10/25/18 03/17/19 Unknown Rx - History of Present Illness-Resp Nature of Presenting Problem: 78yom presents to ED cc SOB that is worse with laying flat, fever, chills, since yesterday and runny nose and sore throat for months. Pt reports he was admitted 10/22/2018 for CHF/fluid overload and put on Lasix but never refilled after script finished. Pt also reports he has not been taking his b/p meds appropriately. Pt denies cough/cp. Pt b/p upon exam is 210/113. Quality of Pain: reports: tightness Severity in ED: reports: moderate, severe Onset/Duration: reports: 24 hours ago Timing: reports: still present, getting worse Cough Quality/Degree: reports: no cough Current Respiratory Medication Therapy: Initiated see nurses note Modifying Factors: improves with: sitting upright. worse with: lying down Associated Symptoms: reports: fever/chills, nasal drainage, shortness of breath, short of breath, sore throat Similar Symptoms Previously?: Yes Recently seen or treated by another doctor?: Yes (seen in ED 10/22/2018) Review of Systems - Adult - REVIEW OF SYSTEMS - ADULT Constitutional: reports: see HPI, chills, fever, fatique Eyes: reports: no symptoms reported Ears, Nose, Mouth & Throat: reports: see HPI, sinus problem, throat pain. denies: ear pain Cardiovascular: reports: see HPI, edema. denies: chest pain, palpitations Respiratory: reports: see HPI, shortness of breath. denies: cough, wheezing Gastrointestinal: reports: no symptoms reported Genitourinary: reports: no symptoms reported Musculoskeletal: reports: no symptoms reported Integumentary: reports: see HPI, other (swelling;generalized) Neurological: reports: no symptoms reported Psychiatric: reports: no symptoms reported Endocrine: reports: no symptoms reported Hematologic/Lymphatic: reports: no symptoms reported Allergic/Immunologic: reports: no symptoms reported All Other Systems: Reviewed and Negative Past History - Adult - PAST MEDICAL HISTORY-ADULT Review of Records: reports: Old Records Reviewed, Nursing Assessment Review, Medications Reviewed, Social history reviewed & non-contributory. Major Childhood Illnesses: reports: denies history Cardiovascular: reports: HTN Respiratory: reports: denies history Gastrointestinal: reports: denies history Obstetrical/Gynecological: reports: denies history Genitourinary: reports: denies history Musculoskeletal: reports: denies history Neurological: reports: denies history Endocrine/Immune: reports: Diabetes Other Conditions: reports: denies history - PRIOR SURGERIES/PROCEDURES Surgical/Procedure History: reports: joint replacement - IMMUNIZATION STATUS Childhood Immunizations: See Nurse Assessment Flu Vaccine: See Nurse Assessment - FAMILY HISTORY Family History: reviewed, not pertinent Physical Exam-General - PHYSICAL EXAM-ADULT Initial Vital Signs Reviewed: Yes - CONSTITUTIONAL General Appearance: appears well, alert, obese. negative: anxious, combative - EYES Eyes: PERRL/EOMI, pink conjunctivae. negative: photophobia - HEAD, EARS, NOSE, MOUTH & THROAT HENMT: normocephalic/atraumatic, moist mucous membranes. negative: angioedema - RESPIRATORY Respiratory: chest non-tender, normal breath sounds, no pleuratic chest pain, no respiratory distress, no accessory muscle use, crackles, wheezing. negative: rales, rhonchi, stridor - CARDIOVASCULAR Cardiovascular: normal peripheral pulses, regular rate, rhythm, no gallop, no JVD, no murmur. negative: no edema, bradycardia, tachycardia - GASTROINTESTINAL (ABDOMEN) Abdominal Exam: normal bowel sounds, non tender, soft, no organomegaly, no pulsatile mass. negative: distended, guarding, rigid, rebound - MUSCULOSKELETAL Extremity: pedal edema. negative: deformity - SKIN Integumentary: normal color, warm/dry, swelling (generalized). negative: diaphoresis, jaundice - PSYCHIATRIC Psych/Mental Status: oriented x 3. negative: anxious, disheveled - HEART Score HEART Score: History: Moderately Suspicious HEART Score: ECG: Non-Specific Repolarization Disturbance/LBBB/PM HEART Score: Age: > or = 65 Years HEART Score: Risk Factors for Atherosclerotic Disease: 1 or 2 Risk Factors HEART Score: Troponin: 1-3x Normal Limit Total HEART Score:: 6 Progress - PLAN OF CARE/RESULTS Progress/Plan/Lab Results: Vital Signs - 8 hr 03/17/19 10:44 03/17/19 12:08 03/17/19 13:47 Temperature 97.6 F Pulse Rate 76 72 89 Respiratory Rate 18 20 20 Blood Pressure 214/99 203/107 O2 Sat by Pulse Oximetry 94 L 97 94 L Laboratory Results - last 24 hr 03/17/19 03/17/19 03/17/19 11:15 11:15 11:15 WBC 6.96 RBC 5.17 Hgb 13.6 L Hct 42.3 MCV 81.8 MCH 26.3 L MCHC 32.2 L RDW Std Deviation 14.7 H Plt Count 236 MPV 10.9 H Immature Gran % (Auto) 0.1 Neut % (Auto) 67.6 Lymph % (Auto) 19.4 L Whitman % (Auto) 8.3 Eos % (Auto) 4.0 Baso % (Auto) 0.6 Immature Gran # (Auto) 0.01 Neut # (Auto) 4.70 Lymph # (Auto) 1.35 Whitman # (Auto) 0.58 Eos # (Auto) 0.28 Baso # (Auto) 0.04 PT INR PTT (Actin FS) D-Dimer, Quantitative 0.45 Sodium 142 Potassium 3.6 Chloride 105 Carbon Dioxide 27 Anion Gap 11 BUN 13 Creatinine 0.8 Estimated GFR/1.73 m2 > 60 BUN/Creatinine Ratio 16 Glucose 329 H Calculated Osmolality 296 Calcium 8.6 L Total Bilirubin 0.50 AST 15 ALT 18 Alkaline Phosphatase 123 H Creatine Kinase 112 Troponin T High Sens [id number]-M-Pagttwseabz Pept Total Protein 5.9 L Albumin 3.4 L Globulin 3.0 Albumin/Globulin Ratio 1.0 03/17/19 03/17/19 03/17/19 11:15 11:15 11:15 WBC RBC Hgb Hct MCV MCH MCHC RDW Std Deviation Plt Count MPV Immature Gran % (Auto) Neut % (Auto) Lymph % (Auto) Whitman % (Auto) Eos % (Auto) Baso % (Auto) Immature Gran # (Auto) Neut # (Auto) Lymph # (Auto) Whitman # (Auto) Eos # (Auto) Baso # (Auto) PT 14.2 INR 1.05 PTT (Actin FS) 28.0 D-Dimer, Quantitative Sodium Potassium Chloride Carbon Dioxide Anion Gap BUN Creatinine Estimated GFR/1.73 m2 BUN/Creatinine Ratio Glucose Calculated Osmolality Calcium Total Bilirubin AST ALT Alkaline Phosphatase Creatine Kinase Troponin T High Sens 65 H [id number] Pept 1543 H Total Protein Albumin Globulin Albumin/Globulin Ratio Orders Category Date Time Status Cardiac Monitoring DIRECTED Care 03/17/19 10:50 Active Oxygen Therapy- ED Nursing DIRECTED Care 03/17/19 10:50 Active Saline Loc NOW Care 03/17/19 10:50 Active Diabetic Diet Diet 03/17/19 14:12 Active CHEST-2 VIEWS [RAD] Stat Exams 03/17/19 10:50 Completed CBC WITH ELECTRONIC DIFF [HEME] Stat Lab 03/17/19 11:15 Completed CK PROFILE [SP CHEM] Stat Lab 03/17/19 11:15 Completed CK PROFILE [SP CHEM] Stat Lab 03/17/19 15:06 Received COMPREHENSIVE METABOLIC PANEL [CHEM] Stat Lab 03/17/19 11:15 Completed D-DIMER [COAG] Stat Lab 03/17/19 11:15 Completed PRO B-NATRIURETIC PEPTIDE Stat Lab 03/17/19 11:15 Completed PROTIME WITH INR [COAG] Stat Lab 03/17/19 11:15 Completed PTT [COAG] Stat Lab 03/17/19 11:15 Completed TROPONIN T HIGH SENSITIVITY Stat Lab 03/17/19 11:15 Completed TROPONIN T HIGH SENSITIVITY Stat Lab 03/17/19 15:30 Ordered Furosemide [Lasix] Med 03/17/19 11:58 Discontinued 40 mg IV NOW ONE Furosemide [Lasix] Med 03/17/19 13:04 Discontinued 40 mg IV NOW ONE Glimepiride [Amaryl] Med 03/17/19 13:16 Discontinued 4 mg PO NOW ONE Glimepiride [Amaryl] Med 03/17/19 14:15 Discontinued 4 mg PO NOW ONE Insulin Human NPH ([place]) [Humulin N Insulin ([place] Med 03/17/19 13:57 Discontinued )] 1 unit .ROUTE .STK-MED ONE Insulin Human NPH [Humulin N] Med 03/17/19 13:50 Discontinued 55 unit SUBQ NOW ONE LISINOpril [Prinivil] Med 03/17/19 13:16 Discontinued 10 mg PO NOW ONE Metformin [Glucophage] Med 03/17/19 13:16 Discontinued 1,000 mg PO NOW ONE Potassium Chloride E.r. [Klor-Con] Med 03/17/19 13:17 Discontinued 10 meq PO NOW ONE CP/SOB/Palp >45 yrs of Age Stat Oth 03/17/19 10:50 Ordered EKG [EKG] Stat Ther 03/17/19 10:50 Draft EKG [EKG] Stat Ther 03/17/19 14:33 Draft Result Diagrams: 03/17/19 11:15 03/17/19 11:15 - EKG 1 Time of EKG reading by physician:: 10:57 EKG Read and Signed by:: Edward Chan EKG Interpretation (*Must complete 3 of following elements*): Abnormal (septal infarct, age undetermined) Rate: 77 Rhythm: Sinus w/PSC QRS: PVC's (ocassional) ST Wave: non-specific ST changes - XRAY 1 XRAY: Bilateral XRAY Study: Chest Impression: See EMR Report (IMPRESSION: Scarring at left base. Chronic genera lized slight interstitial marking prominence. No discrete acute process. Electronically signed by Vinny Harrison 03/17/2019 11:51 AM) - CONSULTS/PCP/HOSPITALIST Notification #1 *Consult/PCP/Hospitalist*: d/w Dr Day Time Discussed: 13:01 Consult Disposition: Admit Departure - Departure Date of Disposition Decision: 03/17/19 Time of Disposition Decision: 13:00 DIAGNOSIS: CHF exacerbation, Uncontrolled hypertension Disposition: ADMITTED INPATIENT 09 Certified Medical Emergency: Emergent Condition: Stable Additional Instructions: ED Follow Up Instructions: You have been treated by a care provider in the Emergency Department. These instructions are being provided to you so you can have an understanding of how to care for yourself upon discharge. Upon discharge from the Emergency Department, you are responsible for making arrangements for follow-up care by a physician of your choice. Take all prescribed medications as directed. Return to the Emergency Department immediately for any new or worsening symptoms. You may call the Physician Referral phone number at [phone] to obtain a list of Physicians who are taking new patients. Referrals and Follow-Ups: Juan Pablo Day MD [Primary Care Provider] - - Critical Care Note This patient required my direct & personal management of CC.: No Attestation - Physician/ COLLETTE Attestation Patient care was provided by Advanced Practice Provider:: No The physician spent face to face time with patient:: Yes Advanced Practice Provider documentation review:: Supervising physician onsite and consulted in the evaluation and care of this patient. The physician did have a face to face encounter with the patient. This chart was documented by the indicated scribe, (Tonie Santoro Scribe) and accurately reflects the services I performed and decisions made by me, Edward Chan MD, as attested by the provider's signature.
[2019-03-17] MEDS ORDERED: GLUCOPHAGE PO ONE (13:16)
[2019-03-17] MEDS ORDERED: PRINIVIL PO ONE ×2 (13:16→22:32)
[2019-03-17] MEDS ORDERED: AMARYL PO ONE ×2 (13:16→14:15)
[2019-03-17] MEDS ORDERED: KLOR-CON PO ONE (13:17)
[2019-03-17] MEDS ORDERED: HUMULIN N SUBQ ONE (13:50)
[2019-03-17] MEDS ORDERED: HUMULIN N INSULIN (PARKWAY) ONE (13:57)
--- NOTE | 2019-03-17 15:08 | EKG Report ---
Test Performed on : 03/17/2019 3:04:51 PM Test Reason : SOB Blood Pressure : / mmHG Vent. Rate : 081 BPM Atrial Rate : 081 BPM P-R Int : 142 ms QRS Dur : 098 ms QT Int : 370 ms P-R-T Axes : 046 -20 133 degrees QTc Int : 429 ms Sinus rhythm. with marked sinus arrhythmia. with frequent premature ventricular complexes. ST & T wave abnormality, consider lateral ischemia Abnormal ECG When compared with ECG of 17-MAR-2019 10:57, (Unconfirmed) premature supraventricular complexes. are no longer present Unconfirmed Result
--- NOTE | 2019-03-17 15:08 | EKG Report ---
Test Performed on : 03/17/2019 10:57:56 AM Test Reason : sob chf Blood Pressure : / mmHG Vent. Rate : 077 BPM Atrial Rate : 077 BPM P-R Int : 158 ms QRS Dur : 100 ms QT Int : 404 ms P-R-T Axes : 056 -15 264 degrees QTc Int : 457 ms Sinus rhythm. with premature supraventricular complexes. and with occasional premature ventricular co mplexes. Septal infarct , age undetermined ST & T wave abnormality, consider lateral ischemia Abnormal ECG When compared with ECG of 23-OCT-2018 05:58, Septal infarct is now present Nonspecific T wave abnormality now evident in Inferior leads T wave inversion now evident in Anterolateral leads Unconfirmed Result
[2019-03-17] MEDS ORDERED: APRESOLINE IV ONE (18:34)
[2019-03-17] MEDS ORDERED: CATAPRES PO PRN (22:34)
[2019-03-18] MEDS ORDERED: HUMULIN N INSULIN (PARKWAY) SUBQ SCH (07:30)
[2019-03-18] MEDS: AMARYL PO SCH ×2 (08:40→17:22)
[2019-03-18] MEDS ORDERED: PRINIVIL PO SCH (09:00)
[2019-03-18] MEDS ORDERED: GLUCOPHAGE XR PO SCH (09:00)
[2019-03-18] MEDS ORDERED: KLOR-CON PO SCH (09:00)
[2019-03-18 16:42] VITALS: BP 179/78
--- NOTE | 2019-04-16 10:29 | HISTORY AND PHYSICAL ---
HISTORY OF PRESENT ILLNESS: This is an 78-year-old white male who is a patient of mine, presented to the ER complaining of shortness of breath that was worse while lying flat. He has had some associated fever and chills since yesterday, runny nose off and on and a sore throat for the past couple of months. The patient was admitted 10/22/2018 for CHF fluid overload, put on Lasix, but never refilled the prescription when he finished using it. He is very noncompliant in his medical regimen. He also reports he has not been taking his blood pressure medicines, either. He denies cough, chest pain, but he did have a blood pressure value at 210/113. He describes some moderate to severe tightness in his chest that has been going on the last 24 hours, seemingly getting worse. He has no significant cough, but his shortness of breath seems definitely worse at night and lying down. So he presented to the emergency room where on arrival he was afebrile, pulse was 76, respiratory rate was 18, blood pressure was 214/99 and repeated 203/107. His O2 saturations were 97% and 94%. He was given some IV Lasix and Amaryl and 55 units of Humulin NPH along with lisinopril and metformin. His initial laboratory data showed CBC was normal. D-dimer was normal. His comp was normal. Blood sugar was 329, followup was 282. He is noncompliant with his diabetes. His total protein was 5.9, albumin was 3.4. BNP was 1543. Renal function was greater than 60. His chest x-ray on admission showed scarring of the left base, chronic generalized slight interstitial marking prominence, no discrete process. He was admitted for treatment regarding his noncompliance and his diabetes and his heart failure issues and not getting prescribed medications. He and his are in the same boat. ALLERGIES: He has no allergies. MEDICATIONS: Metformin 1000 b.i.d., glimepiride 4 b.i.d., lisinopril 10 daily, 55 units of NPH insulin that he does not take, potassium chloride. REVIEW OF SYSTEMS: Constitutional: He denies significant weight changes or losses. He has been fatigued and has had some chills but none associated with any measured fever. Ears, nose and throat: He has chronically runny nose, some throat ache. No pain in the ear. Cardiovascular: He has some edema. He denies chest pain and palpitations. He is orthopneic, and he has some PND. He hears himself wheezing at times. Gastrointestinal: He denies any nausea, vomiting, diarrhea, constipation, melena, hematochezia. Genitourinary: No polyuria, hematuria, nocturia. Musculoskeletal: He has some chronic back pain. Skin: No particular rash. Neurologic: No seizure disorder. No TIAs. No strokes. No headaches. No migraines. Psychiatric: Negative. Endocrine: No polyuria, polydipsia or polyphagia. ENT: No pharyngitis or otitis, but he has some nasal congestion. Hematologic and lymphatic: No bleeding, no clotting. PAST MEDICAL HISTORY: He has had a history of hypertension, diabetes, some chronic back pain. He has had some joint replacement surgery. He has chronic joint pains otherwise. PHYSICAL EXAMINATION: HEENT: His head was normocephalic. Eyes were PERRLA. EOMs intact. Sclerae clear. Nares patent. Oropharynx negative. NECK: Supple. Midline trachea. No lymphadenopathy. Without bruits. CHEST: Flattened diaphragm. Diminished breath sounds, rhonchi. No consolidative features were appreciated. CARDIOVASCULAR: Regular rhythm and rate. No murmurs, gallops, clicks or rubs. ABDOMEN: Soft. No hepatosplenomegaly. No CVA tenderness. EXTREMITIES: Negative for clubbing or cyanosis. He has 2+ edema. SKIN: Clear. No lesions, no rashes. PSYCHIATRIC: Negative. He seems to be a bit confused at times. ADMITTING DIAGNOSES: 1. Poorly controlled hypertension. 2. Type 2 diabetes. 3. Noncompliance. He was admitted for observation and treatment. cc: Juan Pablo Day MD
--- NOTE | 2019-04-16 10:33 | DISCHARGE SUMMARY ---
ADMISSION DATE: 03/18/2019 DISCHARGE DATE: 03/18/2019 This is an 78-year-old hypertensive, diabetic man who has chronic back problems. He presented to the emergency room with shortness of breath, fever and chills, runny nose, sore throat. He has had a history of fluid overloaded. His database showed sodium 142 on admission, potassium 3.6, chloride 105, CO2 of 27, BUN of 13, creatinine 0.8. Estimated GFR greater than 60. BUN and creatinine ratio 16. Blood sugar was 329, 282. His calcium is 8.6, total bilirubin is normal at 0.5. AST and ALT are normal. Alkaline phosphatase 123. CK is 112. Troponin I sensitivity 65 and 69. ProBNP is 1543. Total protein 5.9, albumin 3.4. Coags showed D-dimer was 0.45. CBC showed hematocrit was 42, platelet count was 235, white count was 696. Chest x-ray with scarring at the left base, generalized slight interstitial markings, no discrete changes. He was admitted. We started him back on his Lasix, started him back on his insulin again and his blood pressure medicines, hoping that he will continue to take them. We are going to have him and his come into the office and try to get them to figure out how to do this without just running out of medicines, as is their general condition. They will see me in the office next week. cc: Juan Pablo Day MD
== END 2019-03-18 19:11 | disposition home or self-care (01) ==
LOC: P.ED 10:28 → SUATTDRO 10:29 → P.MEDSURG 10:29 → DIRADM 16:33 → P.MEDSURG 16:33 → OPS 16:33
PROVIDERS: ADMIT Internal Medicine; ATTEND Internal Medicine